=== PATIENT | female | born 1965 | race Caucasian/White ===

== ENCOUNTER 2018-06-25 19:18 | Emergency (ER) | payer MEDICARE, SELFPAY ==
[2018-06-25 19:23] VITALS: BP 132/67; PULSE 90; RESP 16; TEMP 36.7; O2SAT 97
--- NOTE | 2018-06-25 20:41 | NUR.NOTE ---
ring removed with trauma shearsNursing Note:
--- NOTE | 2018-06-25 21:52 | DI.RAD_ITS ---
SYMPTOMS/DIAGNOSIS: FALL ON OUT STRETCHED HAND RIGHT HAND: Multiple views. There is a comminuted oblique fracture through the shaft of the right fifth metacarpal. There is mild displacement of the fracture noted. There is soft tissue swelling about the hand. IMPRESSION: Fracture of the shaft of the right fifth metacarpal as described. RIGHT ELBOW: Three views. There is an osseous density adjacent to the lateral aspect of the head of the radius. This may represent a small avulsed fracture vs an unfused ossicle or old injury. No joint effusion is seen. No other fracture or dislocation is identified. IMPRESSION: 2 mm osseous density adjacent to the lateral aspect of the head of the right radius. This may represent an acute avulsed fracture vs an old injury or unfused ossicle. Please correlate with the patient's site of pain.
--- NOTE | 2018-06-25 22:03 | W.ED.GENAD ---
Discharge Plan Disposition Patient Disposition: HOME Condition: Fair Discharge Details Chief Complaint: Orthopedic Clinical Impression: Closed fracture of 5th metacarpal Primary Care Provider: Sheila Lara ED Provider: Makenzie King Home Meds and New Rx's Prescriptions: Continue fluoxetine 40 MG capsule 80 mg PO QAM RF: 0 trazodone 50 MG tablet 50 mg PO HS RF: 0 baclofen 20 MG tablet 20 mg PO TID RF: 0 gabapentin 800 MG tablet 800 mg PO DIRECTED RF: 0 carbidopa-levodopa 1 EACH tablet,disintegrating 1 ea PO TID RF: 0 quetiapine 400 MG tablet extended release 24 hr 400 mg PO HS RF: 0 dronabinol [Marinol] 2.5 MG capsule 2.5 mg PO BID RF: 0 tizanidine 2 MG capsule 1 - 2 tab PO QID PRNRF: 0 Cannabidiol 20 - 40 mg PO QID PRN PRNRF: 0 multivitamin 1 EACH capsule 1 ea PO DAILY RF: 0 Discharge Instructions Instructions: Boxer Fracture (ED) Additional Instructions: Encourage rest, ice, elevation. Tylenol and/or ibuprofen as needed for discomfort. May continue with previously prescribed pain medication. Keep splint on until evaluated by orthopedics. Please contact orthopedics tomorrow morning to schedule follow-up appointment. If you develop new or worsening symptoms please seek care urgently once again. Stand Alone Forms: Work Release Referrals: Logan Waters MD [ [facility] STAFF PHYSICIAN] - ([phone]) Discharge Data Discharge Date/Time-TO BE ENTERED AT DEPARTURE: 06/25/18 22:43 Medical Decision Making [facility] Narrative Medical decision making narrative: Patient presents today with chief complaint of right hand pain after FOOSH prior to arrival while hiking. On exam, she is noted to have ulnar-sided swelling and ecchymosis of the hand. She does not have pain extending into the digits but does report pain with movement of them. She has good extension of the wrist but flexion is slightly limited. She reports that flexion increases the discomfort she is experiencing on the ulnar side of her hand. No pain elicited with palpation about the wrist. Neurovascularly intact. Full range of motion of the elbow although the patient is endorsing some posterior elbow pain primarily over the olecranon with full extension. I am concerned primarily for a boxer fracture. Will obtain imaging of the patient's hand and elbow. Discussed the plan with the patient and her . She reports she used CBD oil prior to arrival and her pain is now under control. Is declining further analgesics at this time X-rays reviewed by radiologist. I was concerning for questionable 2.3 mm tiny chip avulsion fracture along the lateral head of the radius versus unfused accessory ossicle. Normal soft tissues. Right hand x-ray significant for minimally comminuted oblique fracture within the proximal mid shaft of the fifth soft tissues are normal Discussed these findings with the patient. Reevaluated and I am concerned that there is some internal rotation to the fifth digit, likely associated with fracture she will be placed in a boxer splint. Encourage rest, ice, elevation. Tylenol and/or ibuprofen as needed for discomfort. Patient is placed in a boxer splint using plaster. Sensation and capillary refill remain intact after application of the splint. Patient was then placed in a sling for her questionable elbow fracture. I did reevaluate the elbow. Patient had initially been endorsing some pain over the olecranon. However, with palpation over the radial head she is also endorsing some minimal discomfort. No ecchymosis or swelling noted. Patient will contact orthopedics tomorrow morning to schedule follow-up. She has been seen by Dr. Waters historically. We discussed new/worsening symptoms once he care urgently once again. All questions and concerns were addressed and she is in agreement with this plan [facility] - General Adult General Date/Time Provider Initiated Documentation: 06/25/18 19:27. History of Present Illness 53 year old F presents to the emergency department with the chief complaint of Right hand pain, described as moderate, Quality is described as burning and aching, and is localized to the right and upper extremity. Patient extremity (radiates proximally into the right wrist, particularly with movement). Patient started experiencing this hour(s) (1) and it has been constant. Immobilization improves symptom(s), Movement worsens symptoms . Patient notes no other symptoms. and other (Denies altered sesnation); denies fever/chills and rash. Patient did receive the following treatments prior to arrival, other (topical cannaboid) Related Data Home Medications Medication Instructions Recorded Confirmed baclofen 20 mg PO TID 06/09/17 06/27/18 carbidopa-levodopa 1 ea PO TID 06/09/17 06/27/18 fluoxetine 80 mg PO QAM 06/09/17 06/27/18 gabapentin 800 mg PO DIRECTED 06/09/17 06/27/18 quetiapine 400 mg PO HS 06/09/17 06/27/18 trazodone 50 mg PO HS 06/09/17 06/27/18 Cannabidiol 20 - 40 mg PO QID PRN PRN 07/29/17 06/27/18 multivitamin 1 ea PO DAILY 07/29/17 06/27/18 tizanidine 1 - 2 tab PO QID PRN 07/29/17 06/27/18 dronabinol [Marinol] 2.5 mg PO BID 08/29/17 06/27/18 Allergies Allergy/AdvReac Type Severity Reaction Status Date / Time morphine AdvReac very Unverified 06/27/18 11:08 loopy General Stated Complaint: Orthopedic JOEY: 4 Review of Systems Constitutional Reports as per HPI Musculoskeletal Reports as per HPI Integumentary/Breasts Reports as per HPI Neurologic Reports as per HPI [facility] Medical History Anemia Chronic pain Depression Dystonia Fatigue Incontinence Insomnia Low back pain Pain in left knee Raynauds syndrome Sarcoidosis TMJ (temporomandibular joint disorder) Vitamin D deficiency Social History Smoking/Tobacco Use Status: Never Surgical History Colonoscopy - MAC (08/29/17) Exam Const General: cooperative, healthy appearing, comfortable, no acute distress, well developed and well groomed Nutritional Appearance: average body habitus Orientation: alert and awake [facility] Head: atraumatic Eyes General: appearance normal, both eyes and all related structures Resp Effort & Inspection: normal respiratory effort, able to speak in complete sentences and no respiratory distress Cardio Rate: regular rate Rhythm: regular rhythm Skin General skin exam: ecchymosis (along the palmar ulnar side of the hand) Lesions: no lesions Rashes: no rashes Neuro General: alert and awake Cognition: normal cognition Speech: speech normal Gait: normal gait Sensory Exam: no sensory deficits noted Extrem General: abnormal to inspection (Exam of the right upper extremity is significant for swelling on the ulnar side of the hand. She has ecchymosis of the palm. Pain primarily of the fifth metacarpal. No opening the skin. Sensation normal in the digits. Good capillary refill.), abnormal ROM (Limited range of motion of the wrist. 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 She is unable to extend at baseline) and normal capillary refill Psych Appearance: grossly normal and well kempt Mental Status: mental status grossly normal Speech and Movement: speech and movement normal Mood: congruent mood Affect: normal affect Attitude: cooperative Course Vital Signs Temperature 36.7 C 06/25/18 19:23 Pulse 90 06/25/18 19:23 Respiratory Rate 16 06/25/18 19:23 Blood Pressure 132/67 06/25/18 19:23 Pulse Oximetry 97 06/25/18 19:23 Temperature 36.7 C 06/25/18 19:23 Pulse 90 06/25/18 19:23 Respiratory Rate 16 06/25/18 19:23 Blood Pressure 132/67 06/25/18 19:23 Pulse Oximetry 97 06/25/18 19:23
[2018-06-25 22:29] VITALS: BP 132/67; PULSE 90; RESP 16; TEMP 36.7; O2SAT 97
--- NOTE | 2018-06-25 22:29 | DI.VRAD_ITS ---
EXAM: XR Right Hand Complete, 3 or more Views EXAM DATE/TIME: 06/25/2018 8:40 PM CLINICAL HISTORY: 53 years old, female; Injury or trauma; Fall; Initial encounter; Blunt trauma (contusions or hematomas; Hand; Right; Injury details: Foosh TECHNIQUE: XR Right hand 3 or more views. COMPARISON: No relevant prior studies available. FINDINGS: Bones/joints: A minimally comminuted oblique fracture is seen within the proximal-mid shaft of the fifth metacarpal. Soft tissues: Normal. IMPRESSION: A minimally comminuted oblique fracture is seen within the proximal-mid shaft of the fifth metacarpal. Dictated and Authenticated by: Brett Fischer MD. Ordering:KVNG BLANCHARD MD
--- NOTE | 2018-06-25 22:31 | DI.VRAD_ITS ---
EXAM: XR Right Elbow Complete, 3 or more Views EXAM DATE/TIME: 06/25/2018 8:40 PM CLINICAL HISTORY: 53 years old, female; Injury or trauma; Fall; Initial encounter; Blunt trauma (contusions or hematomas; Elbow; Right; Injury details: Foosh TECHNIQUE: XR Right elbow 3 or more views. COMPARISON: No relevant prior studies available. FINDINGS: Bones/joints: There is a questionable 2.3 mm tiny chip avulsion fracture along the lateral head of the radius versus unfused accessory ossicle. Soft tissues: Normal. IMPRESSION: Questionable 2.3 mm chip avulsion fracture fragment along the lateral radial head versus unfused accessory ossicle. Dictated and Authenticated by: Brett Fischer MD. Ordering:KVNG BLANCHARD MD
--- NOTE | 2018-06-25 22:42 | ED.GENADUL_ITS ---
Discharge Plan Disposition Patient Disposition: HOME Condition: Fair Discharge Details Chief Complaint: Orthopedic Clinical Impression: Closed fracture of 5th metacarpal Primary Care Provider: Sheila Lara ED Provider: Makenzie King Home Meds and New Rx's Prescriptions: Continue fluoxetine 40 MG capsule 80 mg PO QAM RF: 0 trazodone 50 MG tablet 50 mg PO HS RF: 0 baclofen 20 MG tablet 20 mg PO TID RF: 0 gabapentin 800 MG tablet 800 mg PO DIRECTED RF: 0 carbidopa-levodopa 1 EACH tablet,disintegrating 1 ea PO TID RF: 0 quetiapine 400 MG tablet extended release 24 hr 400 mg PO HS RF: 0 dronabinol [Marinol] 2.5 MG capsule 2.5 mg PO BID RF: 0 tizanidine 2 MG capsule 1 - 2 tab PO QID PRNRF: 0 Cannabidiol 20 - 40 mg PO QID PRN PRNRF: 0 multivitamin 1 EACH capsule 1 ea PO DAILY RF: 0 Discharge Instructions Instructions: Boxer Fracture (ED) Additional Instructions: Encourage rest, ice, elevation. Tylenol and/or ibuprofen as needed for discomfort. May continue with previously prescribed pain medication. Keep splint on until evaluated by orthopedics. Please contact orthopedics tomorrow morning to schedule follow-up appointment. If you develop new or worsening symptoms please seek care urgently once again. Stand Alone Forms: Work Release Referrals: Logan Waters MD [ [facility] STAFF PHYSICIAN] - ([phone]) Discharge Data Discharge Date/Time-TO BE ENTERED AT DEPARTURE: 06/25/18 22:43 Medical Decision Making [facility] Narrative Medical decision making narrative: Patient presents today with chief complaint of right hand pain after FOOSH prior to arrival while hiking. On exam, she is noted to have ulnar-sided swelling and ecchymosis of the hand. She does not have pain extending into the digits but does report pain with movement of them. She has good extension of the wrist but flexion is slightly limited. She reports that flexion increases the discomfort she is experiencing on the ulnar side of her hand. No pain elicited with palpation about the wrist. Neurovascularly intact. Full range of motion of the elbow although the patient is endorsing some posterior elbow pain primarily over the olecranon with full extension. I am concerned primarily for a boxer fracture. Will obtain imaging of the patient's hand and elbow. Discussed the plan with the patient and her . She reports she used CBD oil prior to arrival and her pain is now under control. Is declining further analgesics at this time X-rays reviewed by radiologist. I was concerning for questionable 2.3 mm tiny chip avulsion fracture along the lateral head of the radius versus unfused accessory ossicle. Normal soft tissues. Right hand x-ray significant for minimally comminuted oblique fracture within the proximal mid shaft of the fifth soft tissues are normal Discussed these findings with the patient. Reevaluated and I am concerned that there is some internal rotation to the fifth digit, likely associated with fracture she will be placed in a boxer splint. Encourage rest, ice, elevation. Tylenol and/or ibuprofen as needed for discomfort. Patient is placed in a boxer splint using plaster. Sensation and capillary refill remain intact after application of the splint. Patient was then placed in a sling for her questionable elbow fracture. I did reevaluate the elbow. Patient had initially been endorsing some pain over the olecranon. However, with palpation over the radial head she is also endorsing some minimal discomfort. No ecchymosis or swelling noted. Patient will contact orthopedics tomorrow morning to schedule follow-up. She has been seen by Dr. Waters historically. We discussed new/worsening symptoms once he care urgently once again. All questions and concerns were addressed and she is in agreement with this plan [facility] - General Adult General Date/Time Provider Initiated Documentation: 06/25/18 19:27 . History of Present Illness 53 year old F presents to the emergency department with the chief complaint of Right hand pain, described as moderate, Quality is described as burning and aching, and is localized to the right and upper extremity. Patient extremity (radiates proximally into the right wrist, particularly with movement) . Patient started experiencing this hour(s) (1) and it has been constant. Immobilization improves symptom(s), Movement worsens symptoms . Patient notes no other symptoms. and other (Denies altered sesnation); denies fever/ chills and rash. Patient did receive the following treatments prior to arrival, other (topical cannaboid) Related Data Home Medications Medication Instructions Recorded Confirmed baclofen 20 mg PO TID 06/09/17 06/27/18 carbidopa-levodopa 1 ea PO TID 06/09/17 06/27/18 fluoxetine 80 mg PO QAM 06/09/17 06/27/18 gabapentin 800 mg PO DIRECTED 06/09/17 06/27/18 quetiapine 400 mg PO HS 06/09/17 06/27/18 trazodone 50 mg PO HS 06/09/17 06/27/18 Cannabidiol 20 - 40 mg PO QID PRN PRN 07/29/17 06/27/18 multivitamin 1 ea PO DAILY 07/29/17 06/27/18 tizanidine 1 - 2 tab PO QID PRN 07/29/17 06/27/18 dronabinol [Marinol] 2.5 mg PO BID 08/29/17 06/27/18 Allergies Allergy/AdvReac Type Severity Reaction Status Date / Time morphine AdvReac very Unverified 06/27/18 11:08 loopy General Stated Complaint: Orthopedic JOEY: 4 Review of Systems Constitutional Reports as per HPI Musculoskeletal Reports as per HPI Integumentary/Breasts Reports as per HPI Neurologic Reports as per HPI [facility] Medical History Anemia Chronic pain Depression Dystonia Fatigue Incontinence Insomnia Low back pain Pain in left knee Raynauds syndrome Sarcoidosis TMJ (temporomandibular joint disorder) Vitamin D deficiency Social History Smoking/Tobacco Use Status: Never Surgical History Colonoscopy - MAC (08/29/17) Exam Const General: cooperative, healthy appearing, comfortable, no acute distress, well developed and well groomed Nutritional Appearance: average body habitus Orientation: alert and awake [facility] Head: atraumatic Eyes General: appearance normal, both eyes and all related structures Resp Effort & Inspection: normal respiratory effort, able to speak in complete sentences and no respiratory distress Cardio Rate: regular rate Rhythm: regular rhythm Skin General skin exam: ecchymosis (along the palmar ulnar side of the hand) Lesions: no lesions Rashes: no rashes Neuro General: alert and awake Cognition: normal cognition Speech: speech normal Gait: normal gait Sensory Exam: no sensory deficits noted Extrem General: abnormal to inspection (Exam of the right upper extremity is significant for swelling on the ulnar side of the hand. She has ecchymosis of the palm. Pain primarily of the fifth metacarpal. No opening the skin. Sensation normal in the digits. Good capillary refill.), abnormal ROM (Limited range of motion of the wrist. 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 She is unable to extend at baseline) and normal capillary refill Psych Appearance: grossly normal and well kempt Mental Status: mental status grossly normal Speech and Movement: speech and movement normal Mood: congruent mood Affect: normal affect Attitude: cooperative Course Vital Signs Temperature 36.7 C 06/25/18 19:23 Pulse 90 06/25/18 19:23 Respiratory Rate 16 06/25/18 19:23 Blood Pressure 132/67 06/25/18 19:23 Pulse Oximetry 97 06/25/18 19:23 Temperature 36.7 C 06/25/18 19:23 Pulse 90 06/25/18 19:23 Respiratory Rate 16 06/25/18 19:23 Blood Pressure 132/67 06/25/18 19:23 Pulse Oximetry 97 06/25/18 19:23
== END 2018-06-25 22:43 | disposition home or self-care (01) ==
PROVIDERS: Emergency Provider Physician Assistant; PCP Physician Assistant Medical
DX: S62.306A Unspecified fracture of fifth metacarpal bone, right hand, initial encounter for closed fracture (principal); W01.0XXA Fall on same level from slipping, tripping and stumbling without subsequent striking against object, initial encounter; Y93.01 Activity, walking, marching and hiking
CPT/HCPCS: 29125; 99284; 73080; 73130

== ENCOUNTER → 2018-06-27 11:02 | Outpatient (BNVA) | payer MEDICARE, SELFPAY | PROVIDERS: PCP Physician Assistant Medical; Referring Provider Physician Assistant Medical; Visit Provider Orthopaedic Surgery | DX: S62.306A Unspecified fracture of fifth metacarpal bone, right hand, initial encounter for closed fracture (principal); W01.0XXA Fall on same level from slipping, tripping and stumbling without subsequent striking against object, initial encounter | CPT/HCPCS: 99214; L3908 ==

== ENCOUNTER 2018-07-18 10:23 | Outpatient (CLI) | payer MEDICARE, SELFPAY ==
--- NOTE | 2018-07-18 10:23 | DI.RAD_ITS ---
SYMPTOM/DIAGNOSIS: F/U FX RIGHT HAND: Three views. Comparison is made with 06/25/18. There is again seen a mildly displaced, comminuted fracture of the right fifth metacarpal. No change in alignment of the fracture is seen. No new fractures or dislocations are present. The soft tissue swelling has decreased since the prior examination. IMPRESSION: Stable right fifth metacarpal fracture.
== END 2018-07-18 10:43 ==
PROVIDERS: PCP Physician Assistant Medical; Referring Provider Physician Assistant Medical; Visit Provider Orthopaedic Surgery
DX: S62.326D Displaced fracture of shaft of fifth metacarpal bone, right hand, subsequent encounter for fracture with routine healing (principal); X58.XXXD Exposure to other specified factors, subsequent encounter
CPT/HCPCS: 99211; 99213; 73130

== ENCOUNTER 2018-07-27 01:10 | Outpatient (CLI) | payer MEDICARE, SELFPAY ==
--- NOTE | 2018-07-27 10:30 | DI.MRI_ITS ---
SYMPTOM/DIAGNOSIS: RUE DYSTONIA, G24.9 BRAIN MRI: Sagittal T 2, axial T 1, T 2 and T 2 hemo and axial diffusion and T 2 axial FLAIR blader pulse sequences were performed. No signal abnormality is demonstrated in the brain and there is no evidence of a hemorrhage or mass or restricted diffusion. The ventricles are unremarkable. The normal flow void is demonstrated in the cerebral vessels. SUMMARY: Negative brain MRI.
== END 2018-07-27 01:30 ==
PROVIDERS: PCP Physician Assistant Medical; Visit Provider Neurological Surgery
DX: G24.8 Other dystonia (principal)
CPT/HCPCS: 70551

== ENCOUNTER 2018-11-23 00:30 | Outpatient (CLI) | payer MEDICARE, SELFPAY ==
--- NOTE | 2018-11-23 12:30 | DI.MAMMO_ITS ---
SYMPTOMS/DIAGNOSIS: SCREENING, Z12.31 MAMMOGRAMS: Mammograms were interpreted according to the usual protocol including computer analysis with CAD system, tomosynthesis and C view imaging. The breast tissue is of moderate radiodensity. There is no evidence of a discrete mass. There are no suspicious calcifications and there has been no significant interval change when compared with prior images of 04/21/2017. SUMMARY: No evidence of malignancy, category 1. Yearly screening mammography is recommended.. Breast density category B. SA ASSESSMENT OF FINDINGS: Negative. Category 1. Patient will receive a letter notifying them of these results. BI-RADS category B. There are scattered areas of fibroglandular density.
== END 2018-11-23 00:50 ==
PROVIDERS: PCP Physician Assistant Medical; Visit Provider Physician Assistant Medical
DX: Z12.31 Encounter for screening mammogram for malignant neoplasm of breast (principal)
CPT/HCPCS: 77063; 77067

== ENCOUNTER 2019-06-01 17:55 | Emergency (ER) | payer MEDICARE, OTHER, SELFPAY ==
[2019-06-01] VITALS (13 sets, daily range): BP systolic 122–136; BP diastolic 53–92; PULSE 60–71; RESP 9–23; TEMP 36.4; O2SAT 94–98
--- NOTE | 2019-06-01 18:13 | W.ED.GENAD ---
Discharge Plan Disposition Patient Disposition: HOME Condition: Improving Discharge Details Chief Complaint: Nausea/Vomit/Diar Clinical Impression: Episodic peripheral vertigo Primary Care Provider: Sheila Lara ED Provider: Logan Hunter Home Meds and New Rx's Prescriptions: New meclizine 25 mg tablet 25 mg PO BID PRN (Reason: dizziness) Qty: 10 RF: 0 Continued fluoxetine 40 MG capsule 80 mg PO QAM RF: 0 trazodone 50 MG tablet 50 mg PO HS RF: 0 baclofen 20 MG tablet 20 mg PO TID RF: 0 gabapentin 800 MG tablet 800 mg PO DIRECTED RF: 0 carbidopa-levodopa 1 EACH tablet,disintegrating 1 ea PO TID RF: 0 quetiapine 400 MG tablet extended release 24 hr 400 mg PO HS RF: 0 dronabinol [Marinol] 2.5 MG capsule 2.5 mg PO BID RF: 0 tizanidine 2 MG capsule 1 - 2 tab PO QID PRNRF: 0 Cannabidiol 20 - 40 mg PO QID PRN PRNRF: 0 multivitamin 1 EACH capsule 1 ea PO DAILY RF: 0 Discharge Instructions Instructions: Vertigo (ED) Additional Instructions: Home to rest tonight. Sleep with head of the bed elevated 2-3 pillows. Continue to liberally hydrate. May use the prescribed meclizine, if needed for persistent vertiginous symptoms. Return if you develop a headache, fever, or any other acute concerns. Medical Decision Making 54-year-old female with a history of dystonia, previous episode of peripheral vertigo in 2017. Presents the ER complaining of intermittent vertiginous symptoms that began this morning. She does not have a headache. No recent trauma. She denies any recent illness. On exam her right tympanic membrane is slightly distended but otherwise unremarkable. Cranial nerves are intact. Differential diagnosis includes peripheral vertigo/labyrinthitis, dehydration, electrolyte abnormality. Patient had IV access established, given a fluid bolus, screening laboratories obtained, she is referred for CT scan of the head. Given meclizine by mouth. Labs note a white count of 6, hematocrit 38, platelets 201. Sodium 142, potassium 4.0, chloride 104, bicarb 30, BUN 14, creatinine 0.8. LFTs unremarkable. Magnesium slightly low at 1.7 & supplemented in the ED. Patient's CT without acute intracranial findings. Following IVF, medications, the patient has near complete resolution of her presenting symptoms. She is improved and better. We will prescribe a small number of meclizine to be used as needed for home. She is stable for discharge at this time. Lab Data Lab results reviewed: Yes I reviewed the patient's lab results. Laboratory Results - last 24 hr 06/01/19 06/01/19 18:28 18:28 WBC 6.29 RBC 4.19 Hgb 12.4 Hct 38.3 MCV 91.4 MCH 29.6 MCHC 32.4 RDW 13.8 Plt Count 201 MPV 11.2 H Immature Gran % 0.2 Neutrophils % 65.3 Lymphocytes % 24.5 Monocytes % 7.2 Eosinophils % 2.5 Basophils % 0.3 Absolute Neutrophils 4.11 Absolute Lymphocytes 1.54 Absolute Monocytes 0.45 Absolute Eosinophils 0.16 Absolute Basophils 0.02 Sodium 142 Potassium 4.0 Chloride 104 Carbon Dioxide 30.6 Anion Gap 7.4 BUN 14 Creatinine 0.80 Estimated GFR/1.73 m2 >= 60.00 Glucose 110 H Calcium 8.9 Magnesium 1.7 L Total Bilirubin 0.3 AST 15 ALT 16 Alkaline Phosphatase 37 L Total Protein 7.5 Albumin 3.9 HPI General Mode of arrival: ambulatory. Date/Time Provider Initiated Documentation: 06/01/19 17:55. Limitations to Documentation: no limitations. Information obtained by: patient. History of Present Illness 54 year old F presents to the emergency department with the chief complaint of Dizziness since this morning, described as moderate, and is localized to the head. Patient reports no radiation. Patient started experiencing this hour(s) and it has been intermittent. No relieving factors improve symptom(s), No exacerbating factors reported . Patient notes other (No fall or trauma. Nauseated without emesis.); denies fever/chills and headaches. Patient did receive the following treatments prior to arrival, none Related Data Home Medications Medication Instructions Recorded Confirmed baclofen 20 mg PO TID 06/09/17 06/01/19 carbidopa-levodopa 1 ea PO TID 06/09/17 06/01/19 fluoxetine 80 mg PO QAM 06/09/17 06/01/19 gabapentin 800 mg PO DIRECTED 06/09/17 07/18/18 quetiapine 400 mg PO HS 06/09/17 06/01/19 trazodone 50 mg PO HS 06/09/17 06/01/19 Cannabidiol 20 - 40 mg PO QID PRN PRN 07/29/17 06/01/19 multivitamin 1 ea PO DAILY 07/29/17 06/01/19 tizanidine 1 - 2 tab PO QID PRN 07/29/17 06/01/19 dronabinol [Marinol] 2.5 mg PO BID 08/29/17 06/01/19 meclizine 25 mg PO BID PRN #10 tab 06/01/19 Previous Rx's Medication Instructions Recorded meclizine 25 mg PO BID PRN #10 tab 06/01/19 Allergies Allergy/AdvReac Type Severity Reaction Status Date / Time morphine AdvReac very Unverified 06/01/19 18:01 loopy General Stated Complaint: Nausea/Vomit/Diar JOEY: 3 Review of Systems Review of Systems No fall, trauma, headache, fever. 6 systems reviewed and otherwise negative [facility] Medical History Anemia Chronic pain Depression Dystonia Fatigue Incontinence Insomnia Light-headedness (Chronic) Low back pain Lymphadenopathy (Chronic) Pain in left knee Raynauds syndrome Sarcoidosis TMJ (temporomandibular joint disorder) Vitamin D deficiency Surgical History Colonoscopy - MAC (08/29/17) Social History Smoking/Tobacco Use Status: Never Drug use: Never Do you feel safe in your relationship?: Yes Exam Narrative Exam Narrative: GEN: awake, alert, oriented 3. Pleasant, well groomed, interactive. HEAD: Normocephalic, atraumatic ENT: Mucous membranes moist, oropharynx unremarkable, External ear exam unremarkable. Right tympanic membrane slightly distended and fluid-filled. EYES: PERRL, EOMI NECK: Full ROM, no MONALISA, no menigismus CHEST/RESP: Nontender, clear to auscultation bilateral, no wheeze/rhonchi/rales CARDIOVASCULAR: RRR, no murmur, rub clyde. 2+ Rad pulse bilateral ABDOMEN: Soft, nontender, no mass. +Bowel sounds EXT: Full ROM, no edema, no rash Neuro: Grossly normal neurologic exam, the right upper extremity is held in flexion and supination. She has increased muscle tone right upper extremity. Cranial nerves II through XII grossly intact. Conversant, interactive. Psych: Speech fluent, thoughts congruent, affect normal Course Vital Signs Temperature 36.4 C L 06/01/19 17:58 Pulse 65 06/01/19 17:58 Respiratory Rate 18 06/01/19 17:58 Blood Pressure 122/91 H 06/01/19 17:58 Pulse Oximetry 98 06/01/19 17:58 Temperature 36.4 C L 06/01/19 17:58 Temperature Source Tympanic 06/01/19 17:58 Pulse 65 06/01/19 17:58 Respiratory Rate 18 06/01/19 17:58 Blood Pressure 122/91 H 06/01/19 17:58 Pulse Oximetry 98 06/01/19 17:58 Oxygen Delivery Method Room Air 06/01/19 17:58 Oxygen Flow Rate 0 06/01/19 17:58 Pain Level 0 06/01/19 17:58
[2019-06-01] MEDS: Meclizine 25 MG TAB PO (18:21)
[2019-06-01] MEDS: Normal Saline 1,000 ML 1000 ML IV (18:30)
[2019-06-01 18:34] LABS: Abs Immature Grans 0.01 k/cumm (0.0-0.09); Absolute Basophil Count 0.02 k/cumm (0.0-0.2); Absolute Eosinophil Count 0.16 k/cumm (0.0-0.7); Absolute Lymphocyte Count 1.54 k/cumm (1.2-3.4); Absolute Monocyte Count 0.45 k/cumm (0.11-0.7); Absolute Neutrophil Count 4.11 k/cumm (1.2-6.7); Basophils % 0.3; Eosinophils % 2.5; HCT 38.3 % (36.0-46.0); HGB 12.4 g/dL (12.0-15.5); Immature Grans % 0.2; Lymphocytes % 24.5; Mean Corp. HGB Concentration 32.4 g/dL (32.0-36.0); Mean Corpuscular Hemoglobin 29.6 pg (27.0-33.0); Mean Corpuscular Volume 91.4 fL (80-95); Mean Platelet Volume 11.2 fL (8.0-11.0); Monocytes % 7.2; Neutrophils % 65.3; Platelet Count 201 x1000/uL (130-400); RBC 4.19 m/cumm (4.00-5.20); RBC Distribution Width 13.8 % (11.7-14.6); White Blood Cell Count 6.29 k/cumm (4.4-10.8)
--- NOTE | 2019-06-01 18:38 | NUR.NOTE ---
iv placed ivf infusing pt medicated as per mdo Nursing Note:
[2019-06-01 18:46] LABS: ALT 16 U/L (14-59); AST 15 U/L (15-37); Albumin 3.9 g/dL (3.4-5.0); Alkaline Phosphatase 37 U/L (46-116); Anion Gap 7.4 mmol/L (3-11); BUN 14 mg/dL (7-18); Bilirubin, Total 0.3 mg/dL (0.2-1.0); CO2 30.6 mmol/L (21.0-32.0); Calcium 8.9 mg/dL (8.5-10.1); Chloride 104 mmol/L (98-107); Glucose 110 mg/dL (70-100); Magnesium 1.7 mg/dL (1.8-2.4); Sodium 142 mmol/L (136-145); Total Protein 7.5 g/dL (6.4-8.2)
[2019-06-01] MEDS: MAGNESIUM SULFATE 1 GM/100 ML BAG IVPB (18:53)
--- NOTE | 2019-06-01 19:23 | DI.CT_ITS ---
SYMPTOM/DIAGNOSIS: DIZZINESS, NAUSEA NONCONTRAST HEAD CT: Comparison is made with 28 Sep 2017. No intracranial hemorrhage, mass or infarct is seen. The ventricles are normal in size. There is no atrophy. The sinuses and mastoid air cells appear clear where visualized. IMPRESSION: Negative head CT.
--- NOTE | 2019-06-01 19:56 | DI.VRAD_ITS ---
EXAM: CT Head Without Contrast EXAM DATE/TIME: 06/01/2019 7:21 PM CLINICAL HISTORY: 54 years old, female; Dizziness TECHNIQUE: Imaging protocol: Computed tomography images of the head without contrast. Radiation optimization: All CT scans at this facility use at least one of these dose optimization techniques: automated exposure control; mA and/or kV adjustment per patient size (includes targeted exams where dose is matched to clinical indication); or iterative reconstruction. COMPARISON: CT HEAD WITHOUT CONTRAST 28/09/2017 10:23 FINDINGS: Brain: Unremarkable. No intracranial hemorrhage. Unremarkable white matter. No mass effect. Ventricles: Unremarkable. No ventriculomegaly. Bones/joints: Unremarkable. No acute fracture. Sinuses: Visualized sinuses are unremarkable. No fluid levels. Mastoid air cells: Visualized mastoid air cells are well aerated. No mastoid effusion. Soft tissues: Unremarkable. IMPRESSION: No acute intracranial abnormality. Dictated and Authenticated by: Amberly Dorman MD. Ordering:LOLI Ford MD
== END 2019-06-01 20:50 | disposition home or self-care (01) ==
PROVIDERS: Emergency Provider Emergency Medicine; PCP Physician Assistant Medical
DX: H81.399 Other peripheral vertigo, unspecified ear (principal); R11.2 Nausea with vomiting, unspecified; E83.42 Hypomagnesemia
CPT/HCPCS: 36415; 80053; 96361; 96365; 99284; 70450; 83735; 85025; J3475

== ENCOUNTER 2019-12-16 10:48 | Emergency (ER) | payer MEDICARE, OTHER, SELFPAY ==
[2019-12-16 10:55] VITALS: BP 147/82; PULSE 114; RESP 16; TEMP 36.5; O2SAT 95
--- NOTE | 2019-12-16 11:30 | DI.RAD_ITS ---
EXAM: XR CHEST 2V PA LATERAL CLINICAL HISTORY: cough, fever c/o RLL pneumonia clinically TECHNIQUE: 2D digital imaging was performed. COMPARISON: CHEST 2 VIEWS PA,LAT from 09/28/2017 FINDINGS: MEDIASTINUM: Normal. HEART: Normal. PULMONARY VASCULATURE: Normal. LUNGS: There are infiltrates seen in the superior segment of the right lower lobe and the right middl e lobe. PLEURAL SPACE: No pleural effusion or pneumothorax. There is unchanged elevation of the right hemidia phragm. BONE:Mild degenerative changes are seen in the spine. OTHER FINDINGS:Surgical clips are seen overlying the lower thoracic spine which are unchanged. There is a battery pack seen overlying the left chest wall. IMPRESSION: Infiltrates in the right lower lobe and right middle lobe most suggestive of pneumonia. A follow-up examination is recommended to document complete resolution of the infiltrates. DATA REPOSITORY: RADIATION DOSE DELIVERED:
--- NOTE | 2019-12-16 11:34 | ED.GENADUL_ITS ---
Discharge Plan Disposition Patient Disposition: HOME Condition: Stable Discharge Details Chief Complaint: Sorethroat Clinical Impression: Pneumonia, Otitis media, Strep throat Primary Care Provider: Sheila Lara ED Provider: Ca Gonzalez Home Meds and New Rx's Prescriptions: New doxycycline hyclate 100 mg capsule 100 mg PO BID Qty: 20 RF: 0 amoxicillin-pot clavulanate [Augmentin] 875-125 mg tablet 1 tab PO BID Qty: 20 RF: 0 albuterol sulfate [Proventil HFA] 90 mcg/actuation HFA aerosol inhaler 2 puff IH Q6H PRN (Reason: shortness of breath or wheezing) Qty: 8.5 RF: 0 benzonatate [Tessalon Perles] 100 mg capsule 100 mg PO TID PRN (Reason: cough) Qty: 10 RF: 0 ofloxacin 0.3 % drops 10 drp OT DAILY 7 Days RF: 0 No Action fluoxetine 40 MG capsule 80 mg PO QAM RF: 0 trazodone 50 MG tablet 50 mg PO HS RF: 0 baclofen 20 MG tablet 20 mg PO TID RF: 0 gabapentin 800 MG tablet 800 mg PO DIRECTED RF: 0 carbidopa-levodopa 1 EACH tablet,disintegrating 1 ea PO TID RF: 0 quetiapine 400 MG tablet extended release 24 hr 400 mg PO HS RF: 0 dronabinol [Marinol] 2.5 MG capsule 2.5 mg PO BID RF: 0 meclizine 25 mg tablet 25 mg PO BID PRN (Reason: dizziness) Qty: 10 RF: 0 tizanidine 2 MG capsule 1 - 2 tab PO QID PRNRF: 0 Cannabidiol 20 - 40 mg PO QID PRN PRNRF: 0 multivitamin 1 EACH capsule 1 ea PO DAILY RF: 0 naproxen 500 mg Tablet 500 mg PO BID RF: 0 Discharge Instructions Instructions: Otitis Media (ED), Pneumonia (ED) Additional Instructions: Drink plenty of fluids. Rest activities as tolerated. Consider humidifier by her bedside. Avoid smoking. Use antibiotics as prescribed. Use inhaler with spacer as directed. Use eardrops as prescribed bilaterally. Use cough medication as prescribed if needed. Recheck promptly with primary care doctor this week. Return immediately for any worsening, concerns or alarming symptoms sooner if needed. You declined admission to the hospital today, you are aware of the risks associated with declining admission to the hospital with extensive pneumonia. Return immediately if needed for any worsening symptoms. Stand Alone Forms: Work Release Discharge Data Discharge Date/Time-TO BE ENTERED AT DEPARTURE: 12/16/19 15:03 Medical Decision Making This is a 54-year-old patient presenting to the emergency room for complaints of ill feeling for approximately 1 week specifically patient's complaining of nasal congestion, sore throat and ear pain. Patient reports cough with mild shortness of breath. No significant increase in respiratory effort. Patient does report intermittent low-grade fevers subjectively. Patient does report vomiting x2 over the course of the week, last vomiting last night. Patient has had diarrhea for the last 24 hours. Patient reports abdominal cramping but no associated abdominal pain at this time. After initial nursing evaluation rapid strep was performed which was positive. Patient does have obvious pharyngeal erythema patient does have bilateral otitis media as well with concern for possible microperforations of the eardrums. Due to blood in the ear canals and obvious effusion and bulging of the eardrum. No large TM defects noted. Patient also has notable rhonchi in the right lower lung concern for possible pneumonia. After discussing concern of possible pneumonia in addition to positive strep and bilateral otitis media patient's preference is to have chest x-ray at this time. Patient's vital signs reviewed. Patient is notably tachycardic at 114. Patient is able to eat and drink. Will offer p.o. fluids and Tylenol and recheck vital signs. Again patient is in no apparent distress at this time. No significant hypoxia noted or increase in respiratory effort. Patient has no concern of recent Covid exposures or travel. Patient's chest x-ray reveals a extensive right-sided pneumonia. I discussed t his result with the patient and recommended admission to the hospital. Recommended additional evaluate UA vale including labs. Patient declines any additional evaluation and declines admission to the hospital at this time. I have made patient aware that given the extent of her pneumonia she sustained significant risk of decompensation as an outpatient development of respiratory difficulty and possibility of if she is discharged home. Patient reports her understanding and continues to prefer discharge home at this time. I strongly recommended against this plan. Patient is alert and oriented x3, is competent to make decisions at this time and continues to request discharge. Patient reports she lives locally and is capable of returning to the emergency room if she is not improving. Alarming signs and symptoms for which patient should have immediate return were discussed. Given patient's plan to be discharged home will prescribe both Augmentin as well as doxycycline, inhalers and cough medication. Spacer provided. Ofloxacin drops prescribed for concern of microperforations of eardrums. Patient reports her understanding. Patient will be discharged home with assumed risk of decompensation and expectation that she will return for any worsening. Given her strong preference for discharge I have recommended very prompt follow-up with her primary care doctor. HPI General Date/Time Provider Initiated Documentation: 12/16/19 11:31 . HPI Narrative: This is a 54-year-old patient presenting to the emergency room today for complaints of sore throat. Patient reports sore throat for approximately 1 week. She does report associated nasal congestion and ear pain. Patient has had an intermittently productive cough. Patient reports intermittent subjective fevers. She did report vomiting at initial onset of illness and again last night. She has had onset of diarrhea in the last 24 hours. Patient denies abdominal pain currently she did report intermittent cramping prior to diarrhea. Patient does report mild shortness of breath however has no obvious increase in respiratory effort. Patient does report she has been drinking without difficulty. Patient denies any significant voice change or trismus. Denies back pain. 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 Patient smells strongly of marijuana. Related Data Home Medications Medication Instructions Recorded Confirmed baclofen 20 mg PO TID 06/09/17 12/17/19 carbidopa-levodopa 1 ea PO TID 06/09/17 12/17/19 fluoxetine 80 mg PO QAM 06/09/17 12/17/19 gabapentin 800 mg PO DIRECTED 06/09/17 12/17/19 quetiapine 400 mg PO HS 06/09/17 12/17/19 trazodone 50 mg PO HS 06/09/17 12/17/19 Cannabidiol 20 - 40 mg PO QID PRN PRN 07/29/17 12/17/19 multivitamin 1 ea PO DAILY 07/29/17 12/17/19 tizanidine 1 - 2 tab PO QID PRN 07/29/17 12/17/19 dronabinol [Marinol] 2.5 mg PO BID 08/29/17 12/17/19 meclizine 25 mg PO BID PRN #10 tab 06/01/19 12/17/19 albuterol sulfate [Proventil HFA] 2 puff IH Q6H PRN #8.5 gm 12/16/19 12/17/19 amoxicillin-pot clavulanate 1 tab PO BID #20 tab 12/16/19 [Augmentin] benzonatate [Tessalon Perles] 100 mg PO TID PRN #10 cap 12/16/19 12/17/19 doxycycline hyclate 100 mg PO BID #20 cap 12/16/19 naproxen 500 mg PO BID 12/16/19 12/17/19 ofloxacin 10 drp OT DAILY 7 Days ml 12/16/19 12/17/19 Previous Rx's Medication Instructions Recorded meclizine 25 mg PO BID PRN #10 tab 06/01/19 albuterol sulfate [Proventil HFA] 2 puff IH Q6H PRN #8.5 gm 12/16/19 amoxicillin-pot clavulanate 1 tab PO BID #20 tab 12/16/19 [Augmentin] benzonatate [Tessalon Perles] 100 mg PO TID PRN #10 cap 12/16/19 doxycycline hyclate 100 mg PO BID #20 cap 12/16/19 ofloxacin 10 drp OT DAILY 7 Days ml 12/16/19 Allergies Allergy/AdvReac Type Severity Reaction Status Date / Time morphine AdvReac very Unverified 12/16/19 10:59 loopy General Stated Complaint: Sorethroat JOEY: 3 Review of Systems All systems reviewed & are unremarkable except as noted in HPI and below Constitutional Constitutional: Denies chills, Reports fatigue, Reports fever(s) (Subjective), Reports headache(s) and Reports malaise ENT Ears, Nose, Mouth, and Throat: Reports otalgia, Reports headache(s), Reports nasal congestion, Denies sinus pain, Denies sinus pressure and Reports sore throat Cardiovascular Cardiovascular: Denies chest pain, Denies dyspnea and Denies dyspnea on exertion Respiratory Respiratory: Reports cough, Denies hemoptysis, Denies pain on inspiration, Denies dyspnea, Denies dyspnea on exertion and Denies wheezing Gastrointestinal Gastrointestinal: Denies abdominal pain, Reports cramping, Reports diarrhea, Reports nausea and Reports vomiting Genitourinary Genitourinary: Denies dysuria Neurologic Neurologic: Reports headache(s) Endocrine Endocrine: Reports fatigue Allergic/Immunologic Allergic/Immunologic: Denies wheezing [facility] Medical History (Updated 12/18/19 @ 14:33 by Cesar Craft) Anemia Chronic pain Depression Dystonia (Chronic) Fatigue Incontinence Insomnia Light-headedness (Chronic) Low back pain Lymphadenopathy (Chronic) Pain in left knee Raynauds syndrome Sarcoidosis TMJ (temporomandibular joint disorder) Vitamin D deficiency Surgical History (Updated 12/17/19 @ 12:25 by Moshe Figueroa MD) Colonoscopy - MAC (08/29/17) 08/29/17 Dr Bonner - incomplete prep, rec'd repeat with 2 day prep. mg S/P deep brain stimulator placement (Acute) Social History Smoking/Tobacco Use Status: Never Alcohol Intake: never Drug use: Never Substance use type: does not use Do you feel safe at home: Yes Do you feel safe in your relationship?: Yes Exam Narrative Exam Narrative: CONST: Healthy appearing patient, in no acute distress. Well hydrated. Alert and oriented. HENMT: Head nomocephalic, normal to inspection. Atraumatic. Hearing grossly normal. TMs appear infected bilaterally with effusion as well as bulging, blood noted in the ear canals bilaterally consistent with possible microperforations of the eardrums. External canal irritation present, specifically erythema EYES: General normal appearance. Alignment normal. Eyelids normal. Conjunctiva normal. NECK: Normal visual inspection. FROM. Trachea midline. No Midline tenderness. Cervical lymphadenopathy present bilaterally CHEST: Normal insepection of the chest. RESP: Normal respiratory effort. Speaking full sentences. No cough. No audible wheezing. No retractions. Rhonchi noted in the right lower lung, no wheezing. Breath sounds equal bilaterally CARDIO: No JVD. No murmur, regular rate and rhythm SKIN: Normal. Dry. No rashes. NEURO: Alert and awake. Speech clear. PSYCH: Normal affect. Cooperative. Course Vital Signs Vital signs: Vital Signs Temperature 36.5 C 12/16/19 10:55 Pulse 114 H 12/16/19 10:55 Respiratory Rate 16 12/16/19 10:55 Blood Pressure 147/82 H 12/16/19 10:55 Pulse Oximetry 95 12/16/19 10:55 Temperature 36.5 C 12/16/19 10:55 Temperature Source Skin 12/16/19 10:55 Pulse 114 H 12/16/19 10:55 Respiratory Rate 16 12/16/19 10:55 Respiratory Effort Non-Labored 12/16/19 10:55 Blood Pressure 147/82 H 12/16/19 10:55 Blood Pressure Position Sitting 12/16/19 10:55 Pulse Oximetry 95 12/16/19 10:55 Oxygen Delivery Method Room Air 12/16/19 10:55 Oxygen Flow Rate 0 12/16/19 10:55 Pain Level 7 12/16/19 10:55 Lab/Test Results Lab/Test Results: POC Strep Test-MARQUISE(Rapid) Start: 12/16/19 10:57 Freq: .Rapid Strep Test Status: Active Protocol: Document 12/16/19 11:02 [facility] (Rec: 12/16/19 11:02 [facility] [id number]) Strep test-MARQUISE(Rapid)-POC POC-Strep test-MARQUISE (Rapid) Positive POC-Strep test-MARQUISE (Rapid) Positive
[2019-12-16 11:38] VITALS: BP 118/71; PULSE 109; TEMP 37.5; O2SAT 96
[2019-12-16] MEDS: Acetaminophen 500 MG TAB 1000 MG PO (11:47)
--- NOTE | 2019-12-16 12:34 | DI.VRAD_ITS ---
PROCEDURE INFORMATION: Exam: XR Chest, 2 Views Exam date and time: 12/16/2019 11:55 AM Age: 54 years old Clinical indication: Other: Cough, fever C/O rll pneumonia clinically; Prior surgery; Surgery date: 6+ months; Additional info: Cough, fever C/O rll pneumonia clinically x 2days TECHNIQUE: Imaging protocol: XR of the chest Views: 2 views. COMPARISON: CR CHEST 2 VIEWS PA,LAT 09/28/2017 10:28 AM FINDINGS: Lungs: Interstitial prominence and chronic granulomatous disease. Extensive right-sided airspace disease, consistent with bronchopneumonia in the appropriate clinical setting. Pleural space: No significant pleural effusion. Heart/Mediastinum: Normal configuration of the heart. Bones/joints: Stable surgical clips overlying the inferior thoracic spine. Degenerative change prior IMPRESSION: Extensive right-sided airspace disease, consistent with bronchopneumonia in the appropriate clinical setting. Dictated and Authenticated by: Steve Krueger MD. Ordering:ARRON Penaloza MD
== END 2019-12-16 15:03 | disposition home or self-care (01) ==
PROVIDERS: Emergency Provider Physician Assistant; PCP Physician Assistant Medical
DX: J18.8 Other pneumonia, unspecified organism (principal); H66.93 Otitis media, unspecified, bilateral; J02.0 Streptococcal pharyngitis; Z11.59 Encounter for screening for other viral diseases
CPT/HCPCS: 87449; 87880; 99284; 71046

== ENCOUNTER 2019-12-17 10:39 | Inpatient (IN) | payer MEDICARE, OTHER, SELFPAY ==
[2019-12-17 10:43] VITALS: BP 96/61; PULSE 101; RESP 22; TEMP 36.7; O2SAT 94
--- NOTE | 2019-12-17 11:13 | W.ED.GENAD ---
Discharge Plan Disposition Patient Disposition: [facility] Condition: Fair Discharge Details Chief Complaint: RespSymp Clinical Impression: Sepsis, Pneumonia Admit Date/Time: 12/17/19 11:08 Admit Provider: Moshe Figueroa Attending Provider: Moshe Figueroa Primary Care Provider: Sheila Lara ED Provider: Ca Gonzalez Discharge Data Discharge Date/Time-TO BE ENTERED AT DEPARTURE: 12/17/19 12:46 Medical Decision Making Is a 54-year-old patient presenting to the emergency room after initial evaluation yesterday. Patient was seen in the emergency room and diagnosed with otitis media bilaterally, strep throat and an extensive right-sided pneumonia. Patient declined admission after evaluation yesterday. Patient preferred trial of outpatient management patient discharged on oral antibiotics. Patient reports she has vomited her oral antibiotics today. Continues to feel worse and is now requesting admission to the hospital. Patient reports continuing to feel feverish. Patient does report mild shortness of breath but lacks chest pain. Patient denies any abdominal pain at this time. Denies back pain. Patient does report mild headache, little malaise, fatigue. Patient has decreased p.o. intake but does continue to make urine. Patient denies any lower extremity swelling. Patient denies any other concerns or complaints at this time. Labs ordered. Vital signs reviewed. Patient is mildly hypotensive and tachycardic. Given patient's known extensive right-sided pneumonia I am somewhat concerned for the possibility of strep pneumonia infection and possible bacteremia given vital sign changes noted today. Patient is ill-appearing. IV access obtained and fluids ordered. Spoke with hospitalist regarding patient's presentation, hospitalist will accept patient's admission to the hospital. Recommended Rocephin IV after blood cultures obtained. Recommended continue IV fluid. Will accept patient's admission. HPI General Date/Time Provider Initiated Documentation: 12/17/19 10:49. HPI Narrative: This is a 54-year-old patient returning to the emergency room for complaints of persistent illness. Patient was evaluated in the emergency room yesterday. Patient reports she was seen in the emergency room yesterday diagnosed with an extensive right-sided pneumonia as well as otitis media bilaterally and strep throat. Patient reports she was discharged home on Augmentin and doxycycline she did try to take these p.o. medications but has vomited them. Patient reports difficulty holding her medication down, reports increase in ill feeling. Patient does report mild shortness of breath. Patient concerned that she declined admission yesterday but is requesting admission today. Patient reports persistent cough, sore throat, headache. Patient has decreased urine output but is still making urine, decreased p.o. intake. Patient denies any other concerns or complaints at this time. Patient returned seeking admission. Related Data Home Medications Medication Instructions Recorded Confirmed baclofen 20 mg PO TID 06/09/17 12/17/19 carbidopa-levodopa 1 ea PO TID 06/09/17 12/17/19 fluoxetine 80 mg PO QAM 06/09/17 12/17/19 gabapentin 800 mg PO DIRECTED 06/09/17 12/17/19 quetiapine 400 mg PO HS 06/09/17 12/17/19 trazodone 50 mg PO HS 06/09/17 12/17/19 Cannabidiol 20 - 40 mg PO QID PRN PRN 07/29/17 12/17/19 multivitamin 1 ea PO DAILY 07/29/17 12/17/19 tizanidine 1 - 2 tab PO QID PRN 07/29/17 12/17/19 dronabinol [Marinol] 2.5 mg PO BID 08/29/17 12/17/19 meclizine 25 mg PO BID PRN #10 tab 06/01/19 12/17/19 albuterol sulfate [Proventil HFA] 2 puff IH Q6H PRN #8.5 gm 12/16/19 12/17/19 amoxicillin-pot clavulanate 1 tab PO BID #20 tab 12/16/19 [Augmentin] benzonatate [Tessalon Perles] 100 mg PO TID PRN #10 cap 12/16/19 12/17/19 doxycycline hyclate 100 mg PO BID #20 cap 12/16/19 naproxen 500 mg PO BID 12/16/19 12/17/19 ofloxacin 10 drp OT DAILY 7 Days ml 12/16/19 12/17/19 Previous Rx's Medication Instructions Recorded meclizine 25 mg PO BID PRN #10 tab 06/01/19 albuterol sulfate [Proventil HFA] 2 puff IH Q6H PRN #8.5 gm 12/16/19 amoxicillin-pot clavulanate 1 tab PO BID #20 tab 12/16/19 [Augmentin] benzonatate [Tessalon Perles] 100 mg PO TID PRN #10 cap 12/16/19 doxycycline hyclate 100 mg PO BID #20 cap 12/16/19 ofloxacin 10 drp OT DAILY 7 Days ml 12/16/19 Allergies Allergy/AdvReac Type Severity Reaction Status Date / Time morphine AdvReac very Unverified 12/16/19 10:59 loopy General Stated Complaint: RespSymp JOEY: 3 Review of Systems All systems reviewed & are unremarkable except as noted in HPI and below Constitutional Constitutional: Reports chills, Reports fatigue, Reports fever(s), Reports headache(s) and Reports malaise ENT Ears, Nose, Mouth, and Throat: Reports otalgia, Reports headache(s), Reports nasal congestion, Denies sinus pain and Reports sore throat Cardiovascular Cardiovascular: Denies chest pain and Denies dyspnea on exertion Respiratory Respiratory: Reports cough, Denies dyspnea on exertion and Denies wheezing Gastrointestinal Gastrointestinal: Denies abdominal pain, Reports nausea and Reports vomiting Genitourinary Genitourinary: Denies hematuria, Denies dysuria and Denies flank pain Musculoskeletal Musculoskeletal: Denies back pain, Denies myalgias, Denies muscle weakness and Denies numbness Neurologic Neurologic: Reports headache(s) and Denies numbness Endocrine Endocrine: Reports fatigue Allergic/Immunologic Allergic/Immunologic: Denies wheezing PFSH Medical History Anemia Chronic pain Depression Dystonia (Chronic) Fatigue Incontinence Insomnia Light-headedness (Chronic) Low back pain Lymphadenopathy (Chronic) Pain in left knee Raynauds syndrome Sarcoidosis TMJ (temporomandibular joint disorder) Vitamin D deficiency Surgical History (Updated 12/17/19 @ 12:25 by Moshe Figueroa MD) Colonoscopy - MAC (08/29/17) 08/29/17 Dr Bonner - incomplete prep, rec'd repeat with 2 day prep. mg S/P deep brain stimulator placement (Acute) Social History Smoking/Tobacco Use Status: Never Alcohol Intake: never Drug use: Never Substance use type: does not use Do you feel safe at home: Yes Do you feel safe in your relationship?: Yes Exam Narrative Exam Narrative: CONST: Ill appearing patient, in no acute distress. Alert and oriented. HENMT: Head nomocephalic, normal to inspection. Atraumatic. Hearing grossly normal. TMs with erythema and bulging bilaterally, pharyngeal erythema with exudate present. No evidence of peritonsillar abscess at this time. EYES: General normal appearance. Alignment normal. Eyelids normal. Conjunctiva normal. NECK: Normal visual inspection. FROM. Trachea midline. No Midline tenderness. Cervical lymphadenopathy present CHEST: Normal insepection of the chest. RESP: Normal respiratory effort. Speaking full sentences. No cough. No audible wheezing. No retractions. Breath sounds are equal bilaterally. Mild rhonchi on the right. No significant wheezing at this time. CARDIO: No JVD. Tachycardia noted, no murmurs. Regular rhythm GI: Bowel sounds are present in all 4 quadrants, abdomen is soft and nontender. MUSCULOSKELETAL: Normal Gait. FROM of all extremities. SKIN: Normal. Dry. No rashes. NEURO: Alert and awake. Speech clear. PSYCH: Normal affect. Cooperative. Course Vital Signs Vital signs: Vital Signs Temperature 36.7 C 12/17/19 10:43 Pulse 101 H 12/17/19 10:43 Respiratory Rate 22 12/17/19 10:43 Blood Pressure 96/61 L 12/17/19 10:43 Pulse Oximetry 94 L 12/17/19 10:43 Temperature 36.7 C 12/17/19 10:43 Temperature Source Skin 12/17/19 10:43 Pulse 101 H 12/17/19 10:43 Respiratory Rate 22 12/17/19 10:43 Blood Pressure 96/61 L 12/17/19 10:43 Blood Pressure Position Sitting 12/17/19 10:43 Pulse Oximetry 94 L 12/17/19 10:43 Oxygen Delivery Method Room Air 12/17/19 10:43 Oxygen Flow Rate 0 12/17/19 10:43 Lab/Test Results Lab/Test Results: 12/17/19 10:53 Blood Blood Culture - Pending 12/17/19 10:53 Blood Blood Culture - Pending
[2019-12-17 11:35] LABS: Lactate 1.8 mmol/L (0.6-1.4)
[2019-12-17] MEDS: Acetaminophen 325 MG TAB 650 MG PO (11:35)
[2019-12-17] MEDS: Normal Saline 1,000 ML 1000 ML IV (11:36)
[2019-12-17] MEDS: cefTRIAXone 1 GM/50 ML BAG IVPB (11:36)
[2019-12-17 11:53] LABS: ALT 21 U/L (14-59); AST 14 U/L (15-37); Albumin 2.6 g/dL (3.4-5.0); Alkaline Phosphatase 31 U/L (46-116); Anion Gap 5.6 mmol/L (3-11); BUN 18 mg/dL (7-18); Bilirubin, Total 0.7 mg/dL (0.2-1.0); CO2 31.4 mmol/L (21.0-32.0); CREATININE 0.97 mg/dL (0.55-1.02); Calcium 9.3 mg/dL (8.5-10.1); Chloride 101 mmol/L (98-107); Glucose 113 mg/dL (74-106); Potassium 4.4 mmol/L (3.5-5.1); Sodium 138 mmol/L (136-145); Total Protein 7.4 g/dL (6.4-8.2)
[2019-12-17 11:55] LABS: HGB 11.7 g/dL (12.0-15.5); Mean Corp. HGB Concentration 33.4 g/dL (32.0-36.0); Mean Corpuscular Hemoglobin 28.7 pg (27.0-33.0); Mean Platelet Volume 11.3 fL (8.0-11.0); Platelet Count 246 x1000/uL (130-400); RBC 4.07 m/cumm (4.00-5.20); RBC Distribution Width 13.1 % (11.7-14.6); White Blood Cell Count 20.29 k/cumm (4.4-10.8)
--- NOTE | 2019-12-17 11:59 | HPE_ITS ---
Date of service: 12/17/19 Time of Service: 11:59 Assessment and Plan Assessment and plan (1) Pneumonia: Status: Acute Assessment and plan: Community-acquired pneumonia, non-smoker with a label of sarcoid but no documentation available as to whether or not this has involved her lungs. Positive strep on throat [id number] testing yesterday and the clinical picture is compatible with streptococcal pneumonia and otitis media. I am going to treat as such pending blood cultures, with oxygen supplementation, PRN albuterol, IV fluids and ceftriaxone. Expand antibiotic coverage if not improving as expected. (2) Sepsis: Status: Acute Assessment and plan: Tachycardic with soft blood pressure on presentation, modest elevation of lactate, moderate elevation of white blood count. Hemodynam ically better with IV fluids. Management as above. (3) Otitis media: Status: Acute Assessment and plan: No history of recurrent ear problems. Probably acute infection and suspect streptococcal pathogen. Treatment as above with ceftriaxone. She does not have otitis externa, no perforation or ventilation tube so I do not think we need to continue with the ofloxacin eardrops. (4) Strep throat: Status: Acute Assessment and plan: Management with ceftriaxone and analgesics PRN. There are no physical findings of peritonsillar abscess (5) Dystonia: Status: Chronic Assessment and plan: Chronic problem, do not have any past records regarding work-up. I am can continue her outpatient management with carbidopa levodopa, baclofen, as needed tizanidine and gabapentin. (6) Depression: Status: None Assessment and plan: No indication that there has been a significant change in this chronic problem. Continue fluoxetine and quetiapine and trazodone as per outpatient med list. (7) Vomiting and diarrhea: Status: Acute Assessment and plan: Symptoms began with her respiratory symptoms and probably are related. Symptoms worsened after starting on antibiotics and is possible some GI upset from doxycycline and/or amoxicillin/clavulanic acid. IV fluids, symptom treatment with ondansetron if needed. If symptoms persist, further work-up will be initiated. History of Present Illness History of Present Illness Chief Complaint: Cough, shortness of breath, weakness , recurrent vomiting Narrative: 54-year-old woman who is a non-smoker, works in a daycare, returns to the emergency room today because of inability to keep down the oral antibiotics that were prescribed yesterday. She presented with a week history of episodic nausea, vomiting, diarrhea, bilateral ear pain, sore throat and cough. Evaluation was notable for bilateral otitis media, pharyngitis with positive strep on [id number] testing and a chest x-ray chato wing a right upper lobe infiltrate. She was offered admission at the time due to borderline acceptable oxygen saturation levels on room air and her symptoms. She declined and was discharged on doxycycline, Augmentin, ofloxacin and symptom treatment with an albuterol inhaler and benzonatate capsules for cough. Her first symptoms were GI related with nausea and diarrhea then some vomiting. Within a day or 2 developed bilateral ear pain, sore throat and then a cough intermittent and nonproductive. She has had some vague chest discomfort but not pleuritic. No measured fevers at home. Energy level has been down. Some increased urinary frequency but no dysuria. No rash. Multiple ill exposures at the daycare where she works. Reports that she had increased stomach upset after starting on the antibiotics and was unable to keep them down, feeling generally weaker, more short of breath and represented to the emergency room. She was mildly tachycardic and mildly hypotensive on presentation with room air SPO2 of 94%. Her lactate is mildly elevated at 1.8. Influenza swab yesterday was negative. Review of Systems Narrative: Chronic pain right arm with dystonic movements, limited functional ability with the right arm. Current medications marginally helpful. Has had recent implantation (September 2019) of deep brain stimulator. She is not impressed that it has made much difference with her symptoms. No new neurologic symptoms with this current illness. All systems reviewed & are unremarkable except as noted in HPI and below PFSH Medical History Anemia Chronic pain Depression Dystonia (Chronic) Fatigue Incontinence Insomnia Light-headedness (Chronic) Low back pain Lymphadenopathy (Chronic) Pain in left knee Raynauds syndrome Sarcoidosis TMJ (temporomandibular joint disorder) Vitamin D deficiency Surgical History (Updated 12/17/19 @ 12:25 by Moshe Figueroa MD) Colonoscopy - MAC (08/29/17) 08/29/17 Dr Bonner - incomplete prep, rec'd repeat with 2 day prep. mg S/P deep brain stimulator placement (Acute) Social History Smoking/Tobacco Use Status: Never Alcohol Intake: never Drug use: Never Substance use type: does not use Do you feel safe at home: Yes Do you feel safe in your relationship?: Yes Female Reproductive History Menstrual Menopause type: natural Meds Home Medications and Allergies Home Medications Medication Instructions Recorded Confirmed Type baclofen 20 mg PO TID 06/09/17 12/17/19 History carbidopa-levodopa 1 ea PO TID 06/09/17 12/17/19 History fluoxetine 80 mg PO QAM 06/09/17 12/17/19 History gabapentin 800 mg PO DIRECTED 06/09/17 12/17/19 History quetiapine 400 mg PO HS 06/09/17 12/17/19 History trazodone 50 mg PO HS 06/09/17 12/17/19 History Cannabidiol 20 - 40 mg PO QID PRN PRN 07/29/17 12/17/19 History multivitamin 1 ea PO DAILY 07/29/17 12/17/19 History tizanidine 1 - 2 tab PO QID PRN 07/29/17 12/17/19 History dronabinol [Marinol] 2.5 mg PO BID 08/29/17 12/17/19 History meclizine 25 mg PO BID PRN #10 tab 06/01/19 12/17/19 Rx albuterol sulfate [Proventil HFA] 2 puff IH Q6H PRN #8.5 gm 12/16/19 12/17/19 Rx amoxicillin-pot clavulanate 1 tab PO BID #20 tab 12/16/19 Rx [Augmentin] benzonatate [Tessalon Perles] 100 mg PO TID PRN #10 cap 12/16/19 12/17/19 Rx doxycycline hyclate 100 mg PO BID #20 cap 12/16/19 Rx naproxen 500 mg PO BID 12/16/19 12/17/19 History ofloxacin 10 drp OT DAILY 7 Days ml 12/16/19 12/17/19 Rx Allergies Allergy/AdvReac Type Severity Reaction Status Date / Time morphine AdvReac very Unverified 12/16/19 10:59 loopy Exam Narrative Exam Narrative: Woman appearing her stated age in no acute respiratory distress. Speaking in full sentences with no use of accessory muscles of respiration. Temperature 36.7 blood pressure 96/61 pulse regular 101 SaO2 room air 94%. No facial asymmetry. Speech is clear. Sclera without injection or discharge. No trismus. Pharynx erythematous soft palate and tonsillar pillars no ulcerations no exudate. Both tympanic membranes distorted with inflammatory changes the right is bulging. Ear canal looks like it has had recent trauma and she admits to episodic use of Q-tips in her ears. Neck supple no cervical adenopathy. Left upper chest has an implanted pulse generator with clean incision line and no erythema or tenderness. Lungs with inspiratory crackles in the mid and upper right lung alanzi, somewhat diminished breath sounds at the base. No rub heard no wheezing. Clear on the left. Heart rhythm regular no murmur S3 or S4. Active bowel sounds. No abdominal tenderness. Extremities are warm with good pulses in the feet. She has dystonic posturing of the right hand with index and fifth fingers abducted, flexed middle and fourth fingers. She has a little bit of movement of her hand. She has voluntary and coordinated movement with the shoulder. 1+ DTRs at the knees I do not get anything at elbows. Sits up without any assistance. No ataxia. Oriented x4. Results Chest x-ray from December 15 shows extensive right sided infiltrate. Labs Result diagrams: 12/17/19 11:25 12/17/19 11:25 Labs: Laboratory Results - last 24 hr 12/17/19 11:25 Lactate 1.8 H Last Vital Signs Temp 36.7 C 12/17/19 10:43 Pulse 101 H 12/17/19 10:43 Resp 22 12/17/19 10:43 BP 96/61 L 12/17/19 10:43 Pulse Ox 94 L 12/17/19 10:43
[2019-12-17 12:32] LABS: Absolute Lymphocyte Count 1.83 k/cumm (1.2-3.4); Absolute Monocyte Count 0.81 k/cumm (0.11-0.7); Absolute Neutrophil Count 17.65 k/cumm (1.2-6.7)
[2019-12-17 12:33] LABS: Diff Comment Manual Differential
[2019-12-17 12:34] VITALS: RESP 2; RESP 7
[2019-12-17] MEDS: Albuterol/Ipratropium 3 ML UPD VIAL (12:34)
[2019-12-17] MEDS: Baclofen 10 MG TAB 20 MG PO ×2 (13:08→20:49)
[2019-12-17] MEDS: Lactated Ringers 1,000 ML 150 ML IV ×2 (13:08→20:49)
[2019-12-17 13:21] VITALS: BP 108/71; PULSE 92; RESP 18; TEMP 36.8; O2SAT 92
[2019-12-17] MEDS: Carbidopa 25/Levodopa 100 TAB PO ×2 (13:52→20:49)
[2019-12-17] MEDS: Gabapentin 800 MG TAB PO ×2 (13:52→20:47)
[2019-12-17 15:25] VITALS: BP 95/58; PULSE 89; RESP 19; TEMP 37.4; O2SAT 93
[2019-12-17 19:46] VITALS: BP 109/67; PULSE 96; RESP 20; TEMP 37.1; O2SAT 90
[2019-12-17] MEDS: QUEtiapine 300 MG TAB PO (21:14)
[2019-12-17] MEDS: QUEtiapine 100 MG TAB PO (21:14)
[2019-12-17] MEDS: traZODone 50 MG TAB PO (21:14)
[2019-12-18] VITALS (16 sets, daily range): BP systolic 104–129; BP diastolic 61–77; PULSE 86–100; RESP 2–24; TEMP 37.1–37.9; O2SAT 91–96
[2019-12-18] MEDS: Lactated Ringers 1,000 ML 150 ML IV ×2 (03:19→11:53)
[2019-12-18 06:46] LABS: HGB 10.9 g/dL (12.0-15.5); Mean Corpuscular Hemoglobin 28.5 pg (27.0-33.0); Mean Corpuscular Volume 86.4 fL (80-95); Mean Platelet Volume 10.9 fL (8.0-11.0); Platelet Count 236 x1000/uL (130-400); RBC 3.82 m/cumm (4.00-5.20); RBC Distribution Width 13.4 % (11.7-14.6); White Blood Cell Count 11.24 k/cumm (4.4-10.8)
[2019-12-18] MEDS: Gabapentin 800 MG TAB PO ×3 (07:49→20:18)
[2019-12-18] MEDS: Multivitamin TAB 1 TAB PO (07:49)
[2019-12-18] MEDS: Acetaminophen 325 MG TAB 650 MG PO ×2 (07:50→17:54)
[2019-12-18] MEDS: FLUoxetine 20 MG CAP 80 MG PO (07:51)
[2019-12-18] MEDS: Carbidopa 25/Levodopa 100 TAB PO ×3 (07:51→20:18)
[2019-12-18] MEDS: Baclofen 10 MG TAB 20 MG PO ×3 (07:51→20:18)
[2019-12-18] MEDS: Normal Saline Flush 10 ML SYR IVP ×2 (07:52→14:52)
[2019-12-18] MEDS: cefTRIAXone 1 GM/50 ML BAG IVPB ×2 (07:52→14:52)
[2019-12-18] MEDS: Albuterol/Ipratropium 3 ML UPD VIAL UPD ×2 (13:02→17:56)
--- NOTE | 2019-12-18 14:23 | W.PM.PROGNOT ---
Date of Service Date of service: 12/18/19 Time of Service: 14:23 Assessment and Plan Assessment and plan (1) Pneumonia: Status: Acute Assessment and plan: Community-acquired pneumonia, non-smoker with a label of sarcoid but no documentation available as to whether or not this has involved her lungs. Positive strep on throat [id number] testing yesterday and the clinical picture is compatible with streptococcal pneumonia and otitis media. Increase her Rocephin dose to 2 g IV daily. Add Acapella to help mobilize sputum. Order sputum culture and urine strep antigen. Qualifiers: Laterality: right Lung location: lower lobe of lung Pneumonia type: due to unspecified organism Qualified Code(s): J18.9 - Pneumonia, unspecified organism (2) Sepsis: Status: Acute Assessment and plan: Blood culture showed no growth. (3) Otitis media: Status: Acute Assessment and plan: No evidence of perforation of her eardrums. No evidence of external otitis. Continue treatments Rocephin for presumed strep pneumococcal pneumonia.. (4) Strep throat: Status: Acute Assessment and plan: Management with ceftriaxone and analgesics PRN. There are no physical findings of peritonsillar abscess (5) Depression: Status: None Assessment and plan: No indication that there has been a significant change in this chronic problem. Continue fluoxetine and quetiapine and trazodone as per outpatient med list. Subjective Subjective Interval history since last seen: to her current level 11,000.Patient currently being treated for community-acquired right lower lobe pneumonia organism unknown but presumably due to strep pneumonia given her positive rapid strep throat swab. Patient also has bilateral otitis media. She currently receiving ceftriaxone 1 g IV daily. She is slowly improving. Sore throat is improving ears are improving. She has a harsh cough started to produce some sputum. No sputum culture was obtained and no urine was sent for strep urine antigen. I met increase her Rocephin to 2 g daily. Her white count has come down significantly from 20,000. She is remained afebrile. Exam Narrative Exam Narrative: Alert and oriented person place time circumstance. HEENT TMs are remarkable for erythema without exudate. She does have some scabbing of the external ear canals bilaterally. Patient admits that she was digging in her ears with Q-tips prior to admission. Throat is somewhat dry and erythematous but no exudate. Lungs reveal harsh rhonchi at the right lung base with some scattered bilateral expiratory wheezes. Heart is regular rate and rhythm. Abdomen soft nontender. Objective Objective Clinical Data: Abnormal lab results 12/18/19 Range/Units 06:25 WBC 11.24 H D (4.4-10.8) k/cumm RBC 3.82 L (4.00-5.20) m/cumm Hgb 10.9 L (12.0-15.5) g/dL Hct 33.0 L (36.0-46.0) % Vital Signs Temperature 37.5 C 12/18/19 11:34 Temperature Source Tympanic 12/18/19 11:34 Pulse 98 H 12/18/19 13:13 Pulse Rhythm Regular 12/18/19 07:40 Respiratory Rate 16 12/18/19 13:13 Respiratory Effort 12/18/19 07:57 Respiratory Depth Shallow 12/18/19 07:57 Respiratory Pattern Normal 12/18/19 07:57 Blood Pressure 112/67 12/18/19 11:34 Blood Pressure Position Sitting 12/17/19 10:43 Pulse Oximetry 93 L 12/18/19 13:13 Oxygen Delivery Method Room Air 12/18/19 13:02 Oxygen Flow Rate 0 12/18/19 13:02 Pain Level 7 12/18/19 11:34 Comment 12/18/19 07:44 Intake & Output 12/17/19 12/18/19 12/18/19 23:59 11:59 23:59 Intake Total 1340 / 1350 1974 / 2454 480 / 2455 Output Total 400 / 400 Balance 1340 / 1350 1575 / 2055 480 / 2055 Weight 79.379 kg 73.9 kg Intake: IV 1000 / 1010 1974 Oral 340 / 340 480 / 480 Output: Urine 400 / 400 Other: Urine Color Yellow Urine Appearance Clear Cloudy Urine Odor Normal Voiding Methods Toilet Laboratory Results WBC 11.24 k/cumm (4.4-10.8) H D 12/18/19 06:25 RBC 3.82 m/cumm (4.00-5.20) L 12/18/19 06:25 Hgb 10.9 g/dL (12.0-15.5) L 12/18/19 06:25 Hct 33.0 % (36.0-46.0) L 12/18/19 06:25 MCV 86.4 fL (80-95) 12/18/19 06:25 MCH 28.5 pg (27.0-33.0) 12/18/19 06:25 MCHC 33.0 g/dL (32.0-36.0) 12/18/19 06:25 RDW 13.4 % (11.7-14.6) 12/18/19 06:25 Plt Count 236 x1000/uL (130-400) 12/18/19 06:25 MPV 10.9 fL (8.0-11.0) 12/18/19 06:25 Immature Gran % See Differential 12/17/19 11:25 Neutrophils % 85.0 12/17/19 11:25 Band Neutrophils % 2.0 % 12/17/19 11:25 Lymphocytes % 6.0 12/17/19 11:25 Atypical Lymphs % 3.0 12/17/19 11:25 Monocytes % 4.0 12/17/19 11:25 Eosinophils % 0.0 12/17/19 11:25 Basophils % 0.0 12/17/19 11:25 Absolute Neutrophils 17.65 k/cumm (1.2-6.7) H 12/17/19 11:25 Absolute Lymphocytes 1.83 k/cumm (1.2-3.4) 12/17/19 11:25 Absolute Monocytes 0.81 k/cumm (0.11-0.7) H 12/17/19 11:25 Absolute Eosinophils 0.00 k/cumm (0.0-0.7) 12/17/19 11:25 Absolute Basophils 0.00 k/cumm (0.0-0.2) 12/17/19 11:25 Differential Comment Manual differential 12/17/19 11:25 Sodium 138 mmol/L (136-145) 12/17/19 11:25 Potassium 4.4 mmol/L (3.5-5.1) 12/17/19 11:25 Chloride 101 mmol/L (98-107) 12/17/19 11:25 Carbon Dioxide 31.4 mmol/L (21.0-32.0) 12/17/19 11:25 Anion Gap 5.6 mmol/L (3-11) 12/17/19 11:25 BUN 18 mg/dL (7-18) 12/17/19 11:25 Creatinine 0.97 mg/dL (0.55-1.02) 12/17/19 11:25 Estimated GFR/1.73 m2 >= 60.00 (mL/min/1.73m2) 12/17/19 11:25 Glucose 113 mg/dL (74-106) H 12/17/19 11:25 Lactate 1.8 mmol/L (0.6-1.4) H 12/17/19 11:25 Calcium 9.3 mg/dL (8.5-10.1) 12/17/19 11:25 Total Bilirubin 0.7 mg/dL (0.2-1.0) 12/17/19 11:25 AST 14 U/L (15-37) L 12/17/19 11:25 ALT 21 U/L (14-59) 12/17/19 11:25 Alkaline Phosphatase 31 U/L (46-116) L 12/17/19 11:25 Total Protein 7.4 g/dL (6.4-8.2) 12/17/19 11:25 Albumin 2.6 g/dL (3.4-5.0) L 12/17/19 11:25
--- NOTE | 2019-12-18 15:28 | W.NUTCONSULT ---
Date of service: 12/18/19 Time of Service: 15:29 Nutritional Consult ASSESSMENT: 54 year old female with PNA, sepsis, hx of depression. BMI wnl for age. Following Regular Diet with 100% completion. Not considered at nutritional risk. MONITORING AND EVALUATION: po intake, labs, weight Time Spent in Nutritional Counseling and Treatment: 0 time spent face to face
--- NOTE | 2019-12-18 16:44 | PDOC.CMIN ---
- If Service Date Differs Date of service: 12/18/19 Time of Service: 16:44 Care Management Initial Assess REASON FOR HOSPITALIZATION:: CAP, Strep PAST MEDICAL HISTORY/PAST SURGICAL HISTORY:: Medical History . Anemia. Chronic pain. Depression. Dystonia (Chronic). Fatigue. Incontinence. Insomnia. Light-headedness (Chronic). Low back pain. Lymphadenopathy (Chronic). Pain in left knee. Raynauds syndrome. Sarcoidosis. TMJ (temporomandibular joint disorder). Vitamin D deficiency. Surgical History (Updated 12/17/19 @ 12:25 by Moshe Figueroa MD). Colonoscopy - MAC (08/29/17). 08/29/17 Dr Bonner - incomplete prep, rec'd repeat with 2 day prep. mg. S/P deep brain stimulator placement (Acute) PREVIOUS FUNCTIONAL STATUS/SOCIAL/FAMILY SUPPORTS:: Theodora lives in [facility]. Her left about a year ago to live in [place]. He would like her to join him, but she reports that she hasn't been able to sell their home in [place] yet. They have 8 children and 25 grandchildren. One of her son's is currently living with her and helps care for her. 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 She plans to get her house ready to sell soon, but admits that it will be a lot of work, as her left all of his belongings behind. She is mostly independent with her ADL's, but has a lot of family support, if needed. CURRENT FUNCTIONAL STATUS:: Theodora was lying in bed when CM met with her. She reported that she is not feeling well today. She had been to the ED, and was sent home with PO medication, but was not able to keep it down. She returned to the ED and was admitted yesterday. Per provider, her white blood count is still elevated, but improving. CM will continue to follow. ADVANCE DIRECTIVES:: None on file. Has patient been provided with information about the portal?: No Did the patient sign up for the portal?: No CODE STATUS:: Full Code INSURANCE COVERAGE / FINANCIAL ISSUES:: [facility]/ [employer] CURRENT HOME/COMMUNITY SERVICES/EQUIPMENT:: Theodora currently does not have any equipment. She has support from [employer] currently. PRIMARY CARE PHYSICIAN:: Sheila Lara POTENTIAL DISCHARGE NEEDS:: Evaluations for further needs, follow up appointments PATIENT/FAMILY EDUCATION NEEDS:: Review discharge instructions regarding activity levels and medications, discussion of self care needs including ask me three ANTICIPATED BARRIERS TO DISCHARGE:: None identified at this time. TRANSPORTATION:: Theodora will likely be transported via private vehicle by family. PLAN:: Anticipate Theodora will return home when medically cleared. She will transport home via private vehicle when ready. She will follow up with her PCP, as recommended. CM will continue to follow.
[2019-12-18] MEDS: guaiFENesin 600 MG TABCR PO (20:18)
[2019-12-18] MEDS: traZODone 50 MG TAB PO (21:57)
[2019-12-18] MEDS: QUEtiapine 100 MG TAB PO (21:57)
[2019-12-18] MEDS: QUEtiapine 300 MG TAB PO (21:57)
[2019-12-18] MEDS: Lactated Ringers 1,000 ML 75 ML IV (23:07)
[2019-12-19] VITALS (9 sets, daily range): BP systolic 106–121; BP diastolic 60–75; PULSE 86–98; RESP 2–24; TEMP 36.6–37.3; O2SAT 91–96
[2019-12-19] MEDS: Albuterol/Ipratropium 3 ML UPD VIAL UPD ×3 (06:48→18:29)
[2019-12-19 06:49] LABS: Lactate 0.8 mmol/L (0.6-1.4)
[2019-12-19 06:55] LABS: Abs Immature Grans 0.16 k/cumm (0.0-0.09); HCT 31.7 % (36.0-46.0); HGB 10.3 g/dL (12.0-15.5); Mean Corp. HGB Concentration 32.5 g/dL (32.0-36.0); Mean Corpuscular Hemoglobin 28.4 pg (27.0-33.0); Mean Corpuscular Volume 87.3 fL (80-95); Mean Platelet Volume 10.5 fL (8.0-11.0); Platelet Count 250 x1000/uL (130-400); RBC 3.63 m/cumm (4.00-5.20); RBC Distribution Width 13.8 % (11.7-14.6); White Blood Cell Count 7.44 k/cumm (4.4-10.8)
[2019-12-19 07:25] LABS: Anion Gap 5.9 mmol/L (3-11); BUN 5 mg/dL (7-18); CO2 32.1 mmol/L (21.0-32.0); CREATININE 0.71 mg/dL (0.55-1.02); Calcium 8.6 mg/dL (8.5-10.1); Chloride 105 mmol/L (98-107); Glucose 91 mg/dL (74-106); Sodium 143 mmol/L (136-145)
[2019-12-19 07:28] LABS: Absolute Basophil Count 0.07 k/cumm (0.0-0.2); Absolute Eosinophil Count 0.37 k/cumm (0.0-0.7); Absolute Lymphocyte Count 1.04 k/cumm (1.2-3.4); Absolute Monocyte Count 0.67 k/cumm (0.11-0.7); Absolute Neutrophil Count 5.28 k/cumm (1.2-6.7); Atypical Lymphocytes % 1; Diff Comment Manual Differential; RBC Morphology Normal
[2019-12-19] MEDS: FLUoxetine 20 MG CAP 80 MG PO (07:49)
[2019-12-19] MEDS: cefTRIAXone 2 GM/50 ML BAG IVPB (07:50)
[2019-12-19] MEDS: Baclofen 10 MG TAB 20 MG PO ×3 (07:50→20:00)
[2019-12-19] MEDS: Multivitamin TAB 1 TAB PO (07:50)
[2019-12-19] MEDS: guaiFENesin 600 MG TABCR PO ×2 (07:50→20:00)
[2019-12-19] MEDS: Carbidopa 25/Levodopa 100 TAB PO ×3 (07:50→20:00)
[2019-12-19] MEDS: Gabapentin 800 MG TAB PO ×3 (07:50→20:00)
[2019-12-19] MEDS: Acetaminophen 325 MG TAB 650 MG PO ×2 (08:49→20:00)
[2019-12-19 10:50] LABS: Magnesium 1.9 mg/dL (1.8-2.4)
[2019-12-19] MEDS: Potassium Chloride 20 MEQ TABCR 40 MEQ PO (11:08)
--- NOTE | 2019-12-19 11:42 | PHA.ADMREV ---
Pharmacy Clinical Review - Admission Clinical Review (Last Reviewed 12/17/19 @ 12:23 by Moshe Figueroa MD) Vomiting and diarrhea (Acute) Pneumonia (Acute) Otitis media (Acute) Strep throat (Acute) Sepsis (Acute) Pneumonia (Acute) morphine Adverse Reaction (Unverified 12/16/19 10:59) very loopy Height 5 ft 4 in Weight 75.6 kg - Renal Dosing Renal Dosing: BUN 5 mg/dL (7-18) L 12/19/19 06:38 Creatinine 0.71 mg/dL (0.55-1.02) 12/19/19 06:38 Medications needing adjustments: Reviewed - Anticoagulation Anticoagulation: Hgb 10.3 g/dL (12.0-15.5) L 12/19/19 06:38 Hct 31.7 % (36.0-46.0) L 12/19/19 06:38 Plt Count 250 x1000/uL (130-400) 12/19/19 06:38 Creatinine 0.71 mg/dL (0.55-1.02) 12/19/19 06:38 DVT Prohphylaxis: N/A - Opiate Usage Evaluate Pain Scale/Pains Meds: N/A - Relevant Labs Sodium 143 mmol/L (136-145) 12/19/19 06:38 Potassium 3.0 mmol/L (3.5-5.1) L D 12/19/19 06:38 Chloride 105 mmol/L (98-107) 12/19/19 06:38 Magnesium 1.9 mg/dL (1.8-2.4) 12/19/19 06:38 Electrolytes, C-Reactive P, ESR: Reviewed (K+ replaced orally) - Antimicrobial Stewardship Antibiotic appropriateness: Reviewed Surgical Abx d/c within 24 hr: N/A - DM Control DM Control: Glucose 91 mg/dL (74-106) 12/19/19 06:38 Insulin Dosing: N/A - Heart Failure/AK EF%, ROBY's, B-Blockers, Diuretics: N/A - BP Control BP Control: Blood Pressure 121/73 Blood Pressure 110/73 Blood Pressure 104/61 If elevated: Reviewed - QTc Review If Elevated: Reviewed (Not measured but on multiple QTc prolonging medications: zofran, seroquel, trazodone, tizanidine) - IV to PO Switch IV Medications: Reviewed - Home Meds Home Med List reviewed: Reviewed Relevent Home Meds Not ordered & why?: dronabinol, meclizine, naproxen - Current meds Current Medication Order Review: Reviewed
--- NOTE | 2019-12-19 12:04 | W.PM.PROGNOT ---
Date of Service Date of service: 12/19/19 Time of Service: 12:04 Assessment and Plan Assessment and plan (1) Pneumonia: Status: Acute Assessment and plan: Continue high-dose Rocephin 2 g IV daily. Continue to monitor her daily CBC and inflammatory markers. Continue with aerosolized bronchodilators. Hopefully will be able to transition oral antibiotics tomorrow and plan for discharge the end of this week. I would like to see her oxygen requirements improved before discharge. I recheck her chest x-ray prior to discharge.. Qualifiers: Pneumonia type: due to unspecified organism Laterality: right Lung location: lower lobe of lung Qualified Code(s): J18.9 - Pneumonia, unspecified organism (2) Otitis media: Status: Acute Assessment and plan: No evidence of perforation of her eardrums. No evidence of external otitis. Continue treatments Rocephin for presumed strep pneumococcal pneumonia.. Qualifiers: Otitis media type: serous Chronicity: acute Laterality: bilateral Recurrence: non-recurrent Qualified Code(s): H65.03 - Acute serous otitis media, bilateral (3) Strep throat: Status: Acute Assessment and plan: Management with ceftriaxone and analgesics PRN. There are no physical findings of peritonsillar abscess (4) Depression: Status: None Assessment and plan: No indication that there has been a significant change in this chronic problem. Continue fluoxetine and quetiapine and trazodone as per outpatient med list. Qualifiers: Depression Type: major depressive disorder Major depression recurrence: recurrent Active/Remission status: in remission of unspecified degree Qualified Code(s): F33.40 - Major depressive disorder, recurrent, in remission, unspecified Subjective Subjective Interval history since last seen: Patient is having more pain in her right shoulder and arm secondary to her dystonia. She refuses any examination involves passive range of motion of the arm. She says she is tried multiple medications in the past including muscle relaxers which have not helped. She has had implantation of deep brain stimulator to try to help with the pain which so far has not been successful. She says at home she is tried soaking in a hot tub and says that heat does seem to help. I been a trying aqua cell K pad. With respect to her pneumonia she remains afebrile. Cough is nonproductive and minimal coughing at this point. Her leukocytosis is resolved. Her oxygen saturation is 91 to 93% but she remains on nasal cannula at 2 L/min. She is still on Rocephin 2 g IV daily for strep pharyngitis as well as presumed strep pneumonia. She remains on scheduled DuoNeb treatments every 6 hours. I did decrease her duo nebs to as needed. I will get a follow-up chest x-ray prior to her discharge. Exam Narrative Exam Narrative: Alert and oriented person place time circumstance. HEENT Throat is somewhat dry and erythematous but no exudate. Lungs reveal harsh rhonchi at the right lung base with some scattered bilateral expiratory wheezes. Heart is regular rate and rhythm. Abdomen soft nontender. Right shoulder and upper arm is tender with range of motion testing.There is dystonia with range of motion testing Objective Objective Clinical Data: Abnormal lab results 12/19/19 12/19/19 Range/Units 06:38 06:38 RBC 3.63 L (4.00-5.20) m/cumm Hgb 10.3 L (12.0-15.5) g/dL Hct 31.7 L (36.0-46.0) % Absolute Lymphocytes 1.04 L (1.2-3.4) k/cumm Potassium 3.0 L D (3.5-5.1) mmol/L Carbon Dioxide 32.1 H (21.0-32.0) mmol/L BUN 5 L (7-18) mg/dL Vital Signs Temperature 36.7 C 12/19/19 07:21 Temperature Source Temporal Artery Scan 12/19/19 07:21 Pulse 86 12/19/19 07:21 Pulse Rhythm Regular 12/19/19 08:45 Respiratory Rate 16 12/19/19 11:21 Respiratory Effort Non-Labored 12/19/19 08:45 Respiratory Depth Normal 12/19/19 08:45 Respiratory Pattern Normal 12/19/19 08:45 Blood Pressure 121/73 12/19/19 07:21 Blood Pressure Position Sitting 12/17/19 10:43 Pulse Oximetry 93 L 12/19/19 11:21 Oxygen Delivery Method Nasal Cannula 12/19/19 11:21 Oxygen Flow Rate 2 12/19/19 11:21 Pain Level 6 12/19/19 08:49 Comment 12/18/19 07:44 Intake & Output 12/18/19 12/19/19 12/19/19 23:59 11:59 23:59 Intake Total 1490 / 3465 50 / 50 Balance 1490 / 3065 50 / 50 Weight 75.6 kg Intake: IV 1010 / 2985 Oral 480 / 480 / 50 Other: Urine Color Yellow Urine Appearance Clear Clear Urine Odor Normal Comment voids independently. Voiding Methods Toilet Incontinent Laboratory Results WBC 7.44 k/cumm (4.4-10.8) D 12/19/19 06:38 RBC 3.63 m/cumm (4.00-5.20) L 12/19/19 06:38 Hgb 10.3 g/dL (12.0-15.5) L 12/19/19 06:38 Hct 31.7 % (36.0-46.0) L 12/19/19 06:38 MCV 87.3 fL (80-95) 12/19/19 06:38 MCH 28.4 pg (27.0-33.0) 12/19/19 06:38 MCHC 32.5 g/dL (32.0-36.0) 12/19/19 06:38 RDW 13.8 % (11.7-14.6) 12/19/19 06:38 Plt Count 250 x1000/uL (130-400) 12/19/19 06:38 MPV 10.5 fL (8.0-11.0) 12/19/19 06:38 Immature Gran % 0.0 % 12/19/19 06:38 Neutrophils % 71.0 12/19/19 06:38 Band Neutrophils % 0.0 % 12/19/19 06:38 Lymphocytes % 13.0 12/19/19 06:38 Atypical Lymphs % 1 12/19/19 06:38 Monocytes % 9.0 12/19/19 06:38 Eosinophils % 5.0 12/19/19 06:38 Basophils % 1.0 12/19/19 06:38 Absolute Neutrophils 5.28 k/cumm (1.2-6.7) 12/19/19 06:38 Absolute Lymphocytes 1.04 k/cumm (1.2-3.4) L 12/19/19 06:38 Absolute Monocytes 0.67 k/cumm (0.11-0.7) 12/19/19 06:38 Absolute Eosinophils 0.37 k/cumm (0.0-0.7) 12/19/19 06:38 Absolute Basophils 0.07 k/cumm (0.0-0.2) 12/19/19 06:38 Differential Comment Manual differential 12/19/19 06:38 RBC Morphology Normal 12/19/19 06:38 Sodium 143 mmol/L (136-145) 12/19/19 06:38 Potassium 3.0 mmol/L (3.5-5.1) L D 12/19/19 06:38 Chloride 105 mmol/L (98-107) 12/19/19 06:38 Carbon Dioxide 32.1 mmol/L (21.0-32.0) H 12/19/19 06:38 Anion Gap 5.9 mmol/L (3-11) 12/19/19 06:38 BUN 5 mg/dL (7-18) L 12/19/19 06:38 Creatinine 0.71 mg/dL (0.55-1.02) 12/19/19 06:38 Estimated GFR/1.73 m2 >= 60.00 (mL/min/1.73m2) 12/19/19 06:38 Glucose 91 mg/dL (74-106) 12/19/19 06:38 Lactate 0.8 mmol/L (0.6-1.4) 12/19/19 06:38 Calcium 8.6 mg/dL (8.5-10.1) 12/19/19 06:38 Magnesium 1.9 mg/dL (1.8-2.4) 12/19/19 06:38 Total Bilirubin 0.7 mg/dL (0.2-1.0) 12/17/19 11:25 AST 14 U/L (15-37) L 12/17/19 11:25 ALT 21 U/L (14-59) 12/17/19 11:25 Alkaline Phosphatase 31 U/L (46-116) L 12/17/19 11:25 Total Protein 7.4 g/dL (6.4-8.2) 12/17/19 11:25 Albumin 2.6 g/dL (3.4-5.0) L 12/17/19 11:25
[2019-12-19] MEDS: Potassium Chloride 20 MEQ TABCR PO ×2 (13:13→20:00)
--- NOTE | 2019-12-19 16:13 | CMPROGNOTE_ITS ---
- If Service Date Differs Date of service: 12/19/19 Time of Service: 16:13 Care Management Progress Note S/O: Theodora was lying in bed when CM met with her. She reported that she is alive and kicking. CM discussed the plan for Theodora to wean off of O2, as she doesn't currently require it at home. She will also remain on IV abx, per MD. She is agreeable to the plan. CM will continue to follow. A: Theodora is a 54 year old female admitted to [facility] for CAP, Strep on 12/17/19. P: Anticipate Theodora will return home when medically cleared. She will transport home via private vehicle when ready. She will follow up with her PCP, as recommended. CM will continue to follow.
[2019-12-19] MEDS: traZODone 50 MG TAB PO (22:07)
[2019-12-19] MEDS: QUEtiapine 100 MG TAB PO (22:07)
[2019-12-19] MEDS: QUEtiapine 300 MG TAB PO (22:07)
[2019-12-20] VITALS (11 sets, daily range): BP systolic 105–135; BP diastolic 68–87; PULSE 84–93; RESP 2–22; TEMP 36.5–36.9; O2SAT 88–98
[2019-12-20] MEDS: Acetaminophen 325 MG TAB 650 MG PO (03:26)
[2019-12-20] MEDS: Albuterol/Ipratropium 3 ML UPD VIAL UPD ×3 (06:38→18:30)
[2019-12-20 07:15] LABS: Anion Gap 6.3 mmol/L (3-11); BUN 6 mg/dL (7-18); CO2 30.7 mmol/L (21.0-32.0); CREATININE 0.73 mg/dL (0.55-1.02); Calcium 8.7 mg/dL (8.5-10.1); Chloride 105 mmol/L (98-107); Glucose 87 mg/dL (74-106); Potassium 3.8 mmol/L (3.5-5.1); Sodium 142 mmol/L (136-145)
--- NOTE | 2019-12-20 08:17 | DI.RAD_ITS ---
EXAM: XR CHEST 2V PA LATERAL CLINICAL HISTORY: Follow-up with pneumonia TECHNIQUE: 2D digital imaging was performed. COMPARISON: No exams were available for comparison FINDINGS: Infiltrates are again noted in the right middle and lower lobes. The infiltrates appear slightly les s dense when compared with the previous exam. A small right pleural effusion is now visible. The le ft lung remains clear. A stimulator device is again noted overlying the left chest wall. Surgical c lips are seen near the diaphragm. IMPRESSION: Mild interval decrease in density of pulmonary infiltrates. Small right pleural effusion. DATA REPOSITORY: RADIATION DOSE DELIVERED:
[2019-12-20] MEDS: cefTRIAXone 2 GM/50 ML BAG IVPB (09:02)
[2019-12-20] MEDS: FLUoxetine 20 MG CAP 80 MG PO (09:02)
[2019-12-20] MEDS: guaiFENesin 600 MG TABCR PO ×2 (09:02→19:44)
[2019-12-20] MEDS: Gabapentin 800 MG TAB PO ×3 (09:03→19:44)
[2019-12-20] MEDS: Potassium Chloride 20 MEQ TABCR PO (09:03)
[2019-12-20] MEDS: Baclofen 10 MG TAB 20 MG PO ×3 (09:03→19:44)
[2019-12-20] MEDS: Multivitamin TAB 1 TAB PO (09:03)
[2019-12-20] MEDS: Carbidopa 25/Levodopa 100 TAB PO ×3 (09:03→19:44)
[2019-12-20] MEDS: traMADol 50 MG TAB 100 MG PO ×3 (09:22→22:18)
[2019-12-20] MEDS: Normal Saline Flush 10 ML SYR IVP (09:22)
[2019-12-20] MEDS: Amoxicillin 875/Clav. 125 TAB PO (11:46)
--- NOTE | 2019-12-20 16:02 | PGE_ITS ---
Date of Service Date of service: 12/20/19 Time of Service: 16:02 Assessment and Plan Assessment and plan (1) Pneumonia: Status: Acute Assessment and plan: DC Augmentin. Initiate Zosyn and doxycycline. Check urine strep antigen as well as Legionella. Obtain mycoplasma titers. Start IV corticosteroids. Qualifiers: Pneumonia type: due to unspecified organism Laterality: right Lung location: lower lobe of lung Qualified Code(s): J18.9 - Pneumonia, unspecified organism (2) Strep throat: Status: Acute Assessment and plan: Improving (3) Dystonia: Status: Chronic Assessment and plan: Right shoulder pain is much better today. She did require some tramadol. Subjective Subjective Interval history since last seen: Patient remains afebrile. Still has a cough but not as intense. No sputum production yet. We really do not have any clinical microbiology to go on as far as treatment of her pneumonia. I suspect this is an interstitial pneumonitis going on. She still gets significantly winded with any kind of activity is still requiring supplemental oxygen to maintain her saturation. I have ordered atypical studies include mycoplasma and Legionella studies. We will get a high-resolution CT scan of her chest in the morning and I am going to start her on IV corticosteroids tonight to see if this makes a difference in terms of inflammation and gas exchange. I did a [id number] ultrasound study on her today she has diffuse bilateral B-lines and a small right pleural effusion with some atelectatic lung at the right lung base. This morning I was going to switch her from Rocephin to Augmentin in hopes that we can get her home in the next day. However I do not think she is m emani a significant improvement enough for discharge in the next day or 2. I will discontinue the Augmentin and put her on Zosyn along with the doxycycline. Exam Narrative Exam Narrative: Thin middle-aged female in no distress. HEENT is unremarkable. Lungs reveal bilateral basilar rales no rhonchi or wheezes heart is regular rate and rhythm. Abdomen is benign Objective Objective Clinical Data: Abnormal lab results 12/20/19 Range/Units 06:23 BUN 6 L (7-18) mg/dL Vital Signs Temperature 36.9 C 12/20/19 15:25 Temperature Source Tympanic 12/20/19 15:25 Pulse 86 12/20/19 15:25 Pulse Rhythm Regular 12/20/19 10:51 Respiratory Rate 22 12/20/19 15:25 Respiratory Effort Short of Breath 12/20/19 10:51 Respiratory Depth Normal 12/20/19 10:51 Respiratory Pattern Normal 12/20/19 10:51 Blood Pressure 105/68 12/20/19 15:25 Blood Pressure Position Sitting 12/17/19 10:43 Pulse Oximetry 95 12/20/19 15:25 Oxygen Delivery Method Nasal Cannula 12/20/19 15:25 Oxygen Flow Rate 1 12/20/19 15:25 Pain Level 6 12/20/19 15:25 Comment 12/20/19 11:56 Intake & Output 12/19/19 12/20/19 12/20/19 23:59 11:59 23:59 Intake Total 1490 / 1590 360 / 600 240 / 600 Output Total 1600 / 1600 Balance 1490 / 1590 -1240 / -1000 240 / -1000 Weight 75.5 kg Intake: IV 1010 / 1060 Oral 480 / 530 360 / 600 240 / 600 Output: Urine 1600 / 1600 Other: Urine Color Yellow Yellow Urine Appearance Clear Clear Urine Odor Normal None Voiding Methods Toilet Toilet Laboratory Results WBC 7.44 k/cumm (4.4-10.8) D 12/19/19 06:38 RBC 3.63 m/cumm (4.00-5.20) L 12/19/19 06:38 Hgb 10.3 g/dL (12.0-15.5) L 12/19/19 06:38 Hct 31.7 % (36.0-46.0) L 12/19/19 06:38 MCV 87.3 fL (80-95) 12/19/19 06:38 MCH 28.4 pg (27.0-33.0) 12/19/19 06:38 MCHC 32.5 g/dL (32.0-36.0) 12/19/19 06:38 RDW 13.8 % (11.7-14.6) 12/19/19 06:38 Plt Count 250 x1000/uL (130-400) 12/19/19 06:38 MPV 10.5 fL (8.0-11.0) 12/19/19 06:38 Immature Gran % 0.0 % 12/19/19 06:38 Neutrophils % 71.0 12/19/19 06:38 Band Neutrophils % 0.0 % 12/19/19 06:38 Lymphocytes % 13.0 12/19/19 06:38 Atypical Lymphs % 1 12/19/19 06:38 Monocytes % 9.0 12/19/19 06:38 Eosinophils % 5.0 12/19/19 06:38 Basophils % 1.0 12/19/19 06:38 Absolute Neutrophils 5.28 k/cumm (1.2-6.7) 12/19/19 06:38 Absolute Lymphocytes 1.04 k/cumm (1.2-3.4) L 12/19/19 06:38 Absolute Monocytes 0.67 k/cumm (0.11-0.7) 12/19/19 06:38 Absolute Eosinophils 0.37 k/cumm (0.0-0.7) 12/19/19 06:38 Absolute Basophils 0.07 k/cumm (0.0-0.2) 12/19/19 06:38 Differential Comment Manual differential 12/19/19 06:38 RBC Morphology Normal 12/19/19 06:38 Sodium 142 mmol/L (136-145) 12/20/19 06:23 Potassium 3.8 mmol/L (3.5-5.1) D 12/20/19 06:23 Chloride 105 mmol/L (98-107) 12/20/19 06:23 Carbon Dioxide 30.7 mmol/L (21.0-32.0) 12/20/19 06:23 Anion Gap 6.3 mmol/L (3-11) 12/20/19 06:23 BUN 6 mg/dL (7-18) L 12/20/19 06:23 Creatinine 0.73 mg/dL (0.55-1.02) 12/20/19 06:23 Estimated GFR/1.73 m2 >= 60.00 (mL/min/1.73m2) 12/20/19 06:23 Glucose 87 mg/dL (74-106) 12/20/19 06:23 Lactate 0.8 mmol/L (0.6-1.4) 12/19/19 06:38 Calcium 8.7 mg/dL (8.5-10.1) 12/20/19 06:23 Magnesium 1.9 mg/dL (1.8-2.4) 12/19/19 06:38 Total Bilirubin 0.7 mg/dL (0.2-1.0) 12/17/19 11:25 AST 14 U/L (15-37) L 12/17/19 11:25 ALT 21 U/L (14-59) 12/17/19 11:25 Alkaline Phosphatase 31 U/L (46-116) L 12/17/19 11:25 Total Protein 7.4 g/dL (6.4-8.2) 12/17/19 11:25 Albumin 2.6 g/dL (3.4-5.0) L 12/17/19 11:25
--- NOTE | 2019-12-20 16:04 | PDOC.CMPRO ---
- If Service Date Differs Date of service: 12/20/19 Time of Service: 16:04 Care Management Progress Note S/O: Theodora was sitting up in bed when CM met with her. Her mother, Brigid was in the room with her. Theodora reported that she is now on 1L of O2, which is improved from yesterday. CM will continue to follow. A: Theodora is a 54 year old female admitted to [facility] for CAP, Strep on 12/17/19. P: Anticipate Theodora will return home when medically cleared. She will transport home via private vehicle when ready. She will follow up with her PCP, as recommended. CM will continue to follow.
[2019-12-20] MEDS: methylPREDNISolone SUCC 125 MG VIAL 60 MG IVP (17:37)
[2019-12-20] MEDS: Doxycycline Hyclate 100 MG CAP PO (17:37)
[2019-12-20] MEDS: AMPICILLIN/SULBACTAM 3 GM in Normal Saline 100 ML IVPB (18:30)
[2019-12-20] MEDS: QUEtiapine 100 MG TAB PO (22:15)
[2019-12-20] MEDS: traZODone 50 MG TAB PO (22:15)
[2019-12-20] MEDS: QUEtiapine 300 MG TAB PO (22:15)
[2019-12-21] VITALS (10 sets, daily range): BP systolic 104–128; BP diastolic 64–80; PULSE 97–100; RESP 2–22; TEMP 36.5–37.7; O2SAT 88–100
--- NOTE | 2019-12-21 | DI.CT_ITS ---
EXAM: CT CHEST HIGH RESOLUTION CLINICAL HISTORY: Interstitial pneumonitis. TECHNIQUE: Imaging protocol: Axial computed tomography images were obtained and coronal and sagittal reformatted images were created and reviewed. COMPARISON: CT CHEST W/ HRCT from 07/13/2017 XR CHEST 2V PA LATERAL from 12/20/2019 FINDINGS: Tracheobronchial tree: Patent where visualized. Mediastinum and Mónica: Multiple calcified mediastinal and bilateral hilar adenopathy. Pulmonary parenchyma: Ground-glass opacities present in the right upper, right middle and right lower lobes. Areas of consolidation involving the right upper lobe right middle and right lower lobes. T here is a multiloculated, thick-walled, 0.8 x 4.2 x 3.8 cm cystic lesion in the right upper lobe. Th ere is a 2nd similarly thick-walled lesion in the right lower lobe. It measures 2.8 x 2.6 x 3.1 cm. There is a 1.9 x 2.5 cm, rounded opacity in the posterior aspect of the right upper lobe. This may represent an area of rounded pneumonia or atelectasis. There is peribronchial thickening centrally predominantly on the right. Pleura: Small right pleural effusion. No left pleural effusion. Heart: The heart is not dilated. No coronary artery calcifications are seen. No pericardial effusion. Aorta: Thoracic aorta non-dilated. Upper abdomen: Unremarkable. Lymph nodes: Please see above Bones:Degenerative changes in the thoracic spine. Tubes, Catheters, and Lines: There is a battery pack in the left anterior chest wall. IMPRESSION: 1. Right upper, middle and lower lobe infiltrate suspicious for pneumonia. 2. Thick-walled cavities seen in the right upper and lower lobes. Findings raise the question of abs cesses. 3. Rounded opacity in the posterior aspect of the right upper lobe. This may represent a rounded pne umonia or atelectasis. 4. Small right pleural effusion. 5. Pulmonary findings consistent with sarcoidosis. DATA REPOSITORY: All CT scans at this facility are submitted to the National Radiology Data Registry (NRDR) Dose Index Registry (DIR) with the [employer] ([employer]). RADIATION OPTIMIZATION: All CT scans at this facility use at least one of these dose optimization te chniques: automated exposure control; mA and/or kV adjustment per patient size (includes targeted exa ms where dose is matched to clinical indication); or iterative reconstruction.
[2019-12-21] MEDS: Doxycycline Hyclate 100 MG CAP PO ×2 (04:58→16:11)
[2019-12-21] MEDS: AMPICILLIN/SULBACTAM 3 GM in Normal Saline 100 ML IVPB ×5 (04:58→23:44)
[2019-12-21 07:36] LABS: Abs Immature Grans 0.15 k/cumm (0.0-0.09); Absolute Basophil Count 0.02 k/cumm (0.0-0.2); Absolute Eosinophil Count 0.01 k/cumm (0.0-0.7); Absolute Lymphocyte Count 1.13 k/cumm (1.2-3.4); Absolute Monocyte Count 0.14 k/cumm (0.11-0.7); Absolute Neutrophil Count 7.11 k/cumm (1.2-6.7); Basophils % 0.2; Eosinophils % 0.1; HCT 33.9 % (36.0-46.0); HGB 10.8 g/dL (12.0-15.5); Immature Grans % 1.8 %; Lymphocytes % 13.2; Mean Corp. HGB Concentration 31.9 g/dL (32.0-36.0); Mean Corpuscular Hemoglobin 28.1 pg (27.0-33.0); Mean Corpuscular Volume 88.1 fL (80-95); Mean Platelet Volume 10.4 fL (8.0-11.0); Monocytes % 1.6; Neutrophils % 83.1; RBC 3.85 m/cumm (4.00-5.20); RBC Distribution Width 13.8 % (11.7-14.6); White Blood Cell Count 8.56 k/cumm (4.4-10.8)
[2019-12-21 07:49] LABS: Anion Gap 12.6 mmol/L (3-11); BUN 13 mg/dL (7-18); C-Reactive Protein 12.67 mg/dL (0.0-0.3); CO2 25.4 mmol/L (21.0-32.0); Calcium 9.3 mg/dL (8.5-10.1); Chloride 100 mmol/L (98-107); Glucose 119 mg/dL (74-106); Potassium 3.9 mmol/L (3.5-5.1); Sodium 138 mmol/L (136-145)
[2019-12-21 08:01] LABS: Diff Comment Agrees w/ Instrument; Platelet Count 374 x1000/uL (130-400)
[2019-12-21 08:02] LABS: Polychromasia Present
[2019-12-21] MEDS: FLUoxetine 20 MG CAP 80 MG PO (08:57)
[2019-12-21] MEDS: Normal Saline Flush 10 ML SYR IVP ×3 (08:57→23:43)
[2019-12-21] MEDS: methylPREDNISolone SUCC 125 MG VIAL 60 MG IVP ×4 (08:57→23:43)
[2019-12-21] MEDS: Carbidopa 25/Levodopa 100 TAB PO ×3 (08:58→19:58)
[2019-12-21] MEDS: Baclofen 10 MG TAB 20 MG PO ×3 (08:58→19:58)
[2019-12-21] MEDS: Multivitamin TAB 1 TAB PO (08:58)
[2019-12-21] MEDS: Gabapentin 800 MG TAB PO ×3 (08:58→19:58)
[2019-12-21] MEDS: guaiFENesin 600 MG TABCR PO ×2 (08:58→19:58)
[2019-12-21 09:04] LABS: ESR 115 mm/hr (0-30)
[2019-12-21] MEDS: Albuterol/Ipratropium 3 ML UPD VIAL UPD ×3 (12:18→23:43)
--- NOTE | 2019-12-21 14:30 | PDOC.CMPRO ---
- If Service Date Differs Date of service: 12/21/19 Time of Service: 14:30 Care Management Progress Note S/O: Theodora was sitting up in her chair when CM met with her. She reported that she had been to have a CT today, and that she is feeling a little better. She requested that CM contact her route sales representative at the [place], [employer] ([phone]), who requested verification of Theodora's inpatient stay at [facility]. CM called and left a message with [employer]. Theodora reported that this was for a separate matter than this admission, but this admission is delaying Theodora's response to [employer]. CM will continue to follow. A: Theodora is a 54 year old female admitted to [facility] for CAP, Strep on 12/17/19. P: Anticipate Theodora will return home when medically cleared. She will transport home via private vehicle when ready. She will follow up with her PCP, as recommended. CM will continue to follow.
--- NOTE | 2019-12-21 17:01 | PGE_ITS ---
Date of Service Date of service: 12/21/19 Time of Service: 17:01 Assessment and Plan Assessment and plan (1) Pneumonia: Status: Acute Assessment and plan: This appears to be a complex pneumonia with the possibility of a pulmonary abscess which would explain her right shoulder pain. I have asked radiology to push her CT scan and chest x-ray findings to [facility] radiology department. I have called [facility] transfer center requesting a pulmonology consultation. For now we will continue with Unasyn and doxycycline. I feel that she may need referral to pulmonology for protected bronchial washing/culture if her pneumonia is not clearing. She may benefit from an ID consult (unfortunately I did not have the time to call [facility] ID to discuss her case today). Qualifiers: Laterality: right Lung location: lower lobe of lung Pneumonia type: due to unspecified organism Qualified Code(s): J18.9 - Pneumonia, unspecified organism (2) Strep throat: Status: Resolved Assessment and plan: throat is better and has been adequately treated w/ her parenteral antibiotics (3) Otitis media: Status: Resolved Assessment and plan: resolved. no drainage and no perforation of her tympa rolly membranes (per my exam couple of days ago) Qualifiers: Otitis media type: serous Chronicity: acute Laterality: bilateral Recurrence: non-recurrent Qualified Code(s): H65.03 - Acute serous otitis media, bilateral (4) Dystonia: Status: Chronic Assessment and plan: arm/shoulder spasms are better. She is chronically on muscle relaxants. Tramadol was added couple days ago for her pain. Subjective Subjective Interval history since last seen: Minimal cough still nonproductive. At rest she is not short of breath but with activity she gets short of breath. She still requiring oxygen although she is now down to 1 L/min per nasal cannula. She remains afebrile. She underwent a CT scan of her chest this morning under high resolution this demonstrated right upper middle and lower lobe infiltrates consistent with pneumonia however there is some thick walled cavity seen in the right upper and lower lobes raising questionable abscesses. She has small right pleural effusion and has bilateral hilar mediastinal adenopathy consistent with her diagnosis of sarcoidosis. I changed her antibiotic treatment to Unasyn along with doxycycline. The Unasyn will cover anaerobes which the CTRX did not. Her leukocytosis is resolved now. Atypical studies are still pending including Legionella mycoplasma studies. Urine strep antigen is pending. C-reactive protein remains high at 12.6 Exam Narrative Exam Narrative: Middle-age female sitting up in her chair watching TV. She is alert and oriented person place time circumstance. Not in any respiratory discomfort. Lungs are clear on the left side right side there is some crackles at the right base no rhonchi or wheezes. Heart is regular rate and rhythm Objective Objective Clinical Data: Abnormal lab results 12/21/19 12/21/19 Range/Units 07:20 07:20 RBC 3.85 L (4.00-5.20) m/cumm Hgb 10.8 L (12.0-15.5) g/dL Hct 33.9 L (36.0-46.0) % MCHC 31.9 L (32.0-36.0) g/dL Absolute Neutrophils 7.11 H (1.2-6.7) k/cumm Absolute Lymphocytes 1.13 L (1.2-3.4) k/cumm ESR 115 H (0-30) mm/hr Anion Gap 12.6 H (3-11) mmol/L Glucose 119 H (74-106) mg/dL C-Reactive Protein 12.67 H (0.0-0.3) mg/dL Vital Signs Temperature 36.5 C 12/21/19 15:38 Temperature Source Temporal Artery Scan 12/21/19 15:38 Pulse 97 H 12/21/19 15:38 Pulse Rhythm Regular 12/21/19 13:27 Respiratory Rate 20 12/21/19 15:38 Respiratory Effort 12/21/19 13:27 Respiratory Depth Shallow 12/21/19 13:27 Respiratory Pattern Normal 12/21/19 13:27 Blood Pressure 128/80 12/21/19 15:38 Blood Pressure Position Sitting 12/17/19 10:43 Pulse Oximetry 92 L 12/21/19 15:38 Oxygen Delivery Method Nasal Cannula 12/21/19 15:38 Oxygen Flow Rate 1 12/21/19 15:38 Pain Level 6 12/21/19 15:38 Comment 12/21/19 15:38 Intake & Output 12/20/19 12/21/19 12/21/19 23:59 11:59 23:59 Intake Total 340 / 700 690 / 940 250 / 940 Output Total 400 / 2000 1850 / 1850 Balance -60 / -1300 -1160 / -910 250 / -910 Weight 73.2 kg Intake: IV 100 / 100 210 / 210 Oral 240 / 600 480 / 730 250 / 730 Output: Urine 1999 Other: Urine Color Yellow Yellow Urine Appearance Clear Clear Clear Urine Odor Normal Normal Voiding Methods Toilet Toilet Laboratory Results WBC 8.56 k/cumm (4.4-10.8) 12/21/19 07:20 RBC 3.85 m/cumm (4.00-5.20) L 12/21/19 07:20 Hgb 10.8 g/dL (12.0-15.5) L 12/21/19 07:20 Hct 33.9 % (36.0-46.0) L 12/21/19 07:20 MCV 88.1 fL (80-95) 12/21/19 07:20 MCH 28.1 pg (27.0-33.0) 12/21/19 07:20 MCHC 31.9 g/dL (32.0-36.0) L 12/21/19 07:20 RDW 13.8 % (11.7-14.6) 12/21/19 07:20 Plt Count 374 x1000/uL (130-400) D 12/21/19 07:20 MPV 10.4 fL (8.0-11.0) 12/21/19 07:20 Immature Gran % 1.8 % 12/21/19 07:20 Neutrophils % 83.1 12/21/19 07:20 Band Neutrophils % 0.0 % 12/19/19 06:38 Lymphocytes % 13.2 12/21/19 07:20 Atypical Lymphs % 1 12/19/19 06:38 Monocytes % 1.6 12/21/19 07:20 Eosinophils % 0.1 12/21/19 07:20 Basophils % 0.2 12/21/19 07:20 Absolute Neutrophils 7.11 k/cumm (1.2-6.7) H 12/21/19 07:20 Absolute Lymphocytes 1.13 k/cumm (1.2-3.4) L 12/21/19 07:20 Absolute Monocytes 0.14 k/cumm (0.11-0.7) 12/21/19 07:20 Absolute Eosinophils 0.01 k/cumm (0.0-0.7) 12/21/19 07:20 Absolute Basophils 0.02 k/cumm (0.0-0.2) 12/21/19 07:20 Differential Comment Agrees w/ instrument 12/21/19 07:20 RBC Morphology See below 12/21/19 07:20 Polychromasia Present 12/21/19 07:20 ESR 115 mm/hr (0-30) H 12/21/19 07:20 Sodium 138 mmol/L (136-145) 12/21/19 07:20 Potassium 3.9 mmol/L (3.5-5.1) 12/21/19 07:20 Chloride 100 mmol/L (98-107) 12/21/19 07:20 Carbon Dioxide 25.4 mmol/L (21.0-32.0) 12/21/19 07:20 Anion Gap 12.6 mmol/L (3-11) H 12/21/19 07:20 BUN 13 mg/dL (7-18) D 12/21/19 07:20 Creatinine 0.80 mg/dL (0.55-1.02) 12/21/19 07:20 Estimated GFR/1.73 m2 >= 60.00 (mL/min/1.73m2) 12/21/19 07:20 Glucose 119 mg/dL (74-106) H 12/21/19 07:20 Lactate 0.8 mmol/L (0.6-1.4) 12/19/19 06:38 Calcium 9.3 mg/dL (8.5-10.1) 12/21/19 07:20 Magnesium 1.9 mg/dL (1.8-2.4) 12/19/19 06:38 Total Bilirubin 0.7 mg/dL (0.2-1.0) 12/17/19 11:25 AST 14 U/L (15-37) L 12/17/19 11:25 ALT 21 U/L (14-59) 12/17/19 11:25 Alkaline Phosphatase 31 U/L (46-116) L 12/17/19 11:25 C-Reactive Protein 12.67 mg/dL (0.0-0.3) H 12/21/19 07:20 Total Protein 7.4 g/dL (6.4-8.2) 12/17/19 11:25 Albumin 2.6 g/dL (3.4-5.0) L 12/17/19 11:25
[2019-12-21] MEDS: traMADol 50 MG TAB 100 MG PO (21:40)
[2019-12-21] MEDS: traZODone 50 MG TAB PO (21:41)
[2019-12-21] MEDS: QUEtiapine 300 MG TAB PO (21:41)
[2019-12-21] MEDS: QUEtiapine 100 MG TAB PO (21:41)
[2019-12-22] VITALS (10 sets, daily range): BP systolic 117–138; BP diastolic 69–82; PULSE 80–95; RESP 2–18; TEMP 36.6–37.1; O2SAT 2–97
[2019-12-22] MEDS: Doxycycline Hyclate 100 MG CAP PO ×2 (03:43→16:36)
[2019-12-22] MEDS: AMPICILLIN/SULBACTAM 3 GM in Normal Saline 100 ML IVPB ×3 (05:44→17:27)
[2019-12-22] MEDS: Albuterol/Ipratropium 3 ML UPD VIAL UPD ×3 (05:44→17:26)
[2019-12-22 07:28] LABS: Abs Immature Grans 0.19 k/cumm (0.0-0.09); HGB 10.5 g/dL (12.0-15.5); Mean Corp. HGB Concentration 31.8 g/dL (32.0-36.0); Mean Corpuscular Hemoglobin 28.3 pg (27.0-33.0); Mean Corpuscular Volume 88.9 fL (80-95); Mean Platelet Volume 10.5 fL (8.0-11.0); Platelet Count 429 x1000/uL (130-400); RBC 3.71 m/cumm (4.00-5.20); RBC Distribution Width 14.1 % (11.7-14.6); White Blood Cell Count 11.52 k/cumm (4.4-10.8)
[2019-12-22 07:35] LABS: Anion Gap 5.5 mmol/L (3-11); BUN 17 mg/dL (7-18); CO2 29.5 mmol/L (21.0-32.0); CREATININE 0.78 mg/dL (0.55-1.02); Calcium 8.8 mg/dL (8.5-10.1); Chloride 102 mmol/L (98-107); Glucose 117 mg/dL (74-106); Sodium 137 mmol/L (136-145)
[2019-12-22 07:37] LABS: C-Reactive Protein 6.29 mg/dL (0.0-0.3)
[2019-12-22] MEDS: traMADol 50 MG TAB 100 MG PO ×2 (07:57→14:38)
[2019-12-22] MEDS: guaiFENesin 600 MG TABCR PO ×2 (07:57→19:48)
[2019-12-22] MEDS: Multivitamin TAB 1 TAB PO (07:57)
[2019-12-22] MEDS: FLUoxetine 20 MG CAP 80 MG PO (07:57)
[2019-12-22] MEDS: Baclofen 10 MG TAB 20 MG PO ×3 (07:57→19:47)
[2019-12-22] MEDS: Gabapentin 800 MG TAB PO ×3 (07:57→19:48)
[2019-12-22] MEDS: Carbidopa 25/Levodopa 100 TAB PO ×3 (07:57→19:47)
[2019-12-22] MEDS: Normal Saline Flush 10 ML SYR IVP ×4 (07:58→17:27)
[2019-12-22] MEDS: methylPREDNISolone SUCC 125 MG VIAL 60 MG IVP ×2 (07:58→16:37)
[2019-12-22 08:01] LABS: Absolute Lymphocyte Count 1.84 k/cumm (1.2-3.4); Absolute Monocyte Count 0.69 k/cumm (0.11-0.7); Absolute Neutrophil Count 8.76 k/cumm (1.2-6.7); Atypical Lymphocytes % 2
[2019-12-22 08:02] LABS: Diff Comment Manual Differential; RBC Morphology Normal
--- NOTE | 2019-12-22 16:43 | CMPROGNOTE_ITS ---
- If Service Date Differs Date of service: 12/22/19 Time of Service: 16:43 Care Management Progress Note S/O: No changes in the plan of care today, Theodora remains inpatient and receiving IV abx. Length of treatment to be determined, CM to continue to assess for discharge needs including possibility of home oxygen at time of discharge. A: Theodora is a 54 year old female admitted to [facility] for CAP, Strep on 12/17/19. P: Anticipate Theodora will return home when medically cleared. She will transport home via private vehicle when ready. She will follow up with her PCP, as recommended. CM will continue to follow.
--- NOTE | 2019-12-22 18:34 | W.PM.PROGNOT ---
Date of Service Date of service: 12/22/19 Time of Service: 18:34 Assessment and Plan Assessment and plan (1) Pneumonia: Status: Acute Assessment and plan: Complicated by pulmonary abscess. CRP improving on Unasyn and doxycycline. Continue to trend. Does not require bronchoscopy, per [facility] pulmonology. Continue abx as above; wean O2 as tolerated. Qualifiers: Pneumonia type: due to unspecified organism Laterality: right Lung location: lower lobe of lung Qualified Code(s): J18.9 - Pneumonia, unspecified organism (2) Lung abscess: Status: Acute Assessment and plan: As above (3) Strep throat: Status: Resolved Assessment and plan: Improving on above abx. Continue. (4) Otitis media: Status: Acute Assessment and plan: Still having some symptoms today - ears feel full. Continue current abx. Qualifiers: Otitis media type: serous Chronicity: acute Laterality: bilateral Recurrence: non-recurrent Qualified Code(s): H65.03 - Acute serous otitis media, bilateral (5) Dystonia: Status: Chronic Assessment and plan: Continue muscule relaxants/neurontin. (6) Discharge planning issues: Status: Acute Assessment and plan: Full code Continues to require hospitalization. Will likely need 4-6 weeks of abx, but would be expected to switch to PO. (7) DVT prophylaxis: Status: Acute Assessment and plan: Start Lovenox Subjective Subjective Interval history since last seen: Feels better. Denies dizziness. Cough more productive. Reports a constant midsternal pain. Denies nausea/vomiting. Throat and neck feel better. Still gets short of breath on minimal exertion. Exam Narrative Exam Narrative: General: Very pleasant middle-aged female, sitting up in a chair, A&OX3, not in acute distress HEENT: EOMI, MMM Heart: RRR, mildly tachycardic, no m/r/g Lungs: coarse rhonchi B, R>L Abdomen: soft, nontender, nondistended Extremities: no e/c/c BLE's Objective Objective Clinical Data: Abnormal lab results 12/22/19 12/22/19 12/22/19 Range/Units 07:00 07:00 07:00 WBC 11.52 H D (4.4-10.8) k/cumm RBC 3.71 L (4.00-5.20) m/cumm Hgb 10.5 L (12.0-15.5) g/dL Hct 33.0 L (36.0-46.0) % MCHC 31.8 L (32.0-36.0) g/dL Plt Count 429 H (130-400) x1000/uL Absolute Neutrophils 8.76 H (1.2-6.7) k/cumm Glucose 117 H (74-106) mg/dL C-Reactive Protein 6.29 H (0.0-0.3) mg/dL Vital Signs Temperature 37.0 C 12/22/19 16:50 Temperature Source Tympanic 12/22/19 16:50 Pulse 95 H 12/22/19 16:50 Pulse Rhythm Regular 12/22/19 17:36 Respiratory Rate 14 12/22/19 16:50 Respiratory Effort 12/22/19 17:36 Respiratory Depth Normal 12/22/19 17:36 Respiratory Pattern Normal 12/22/19 17:36 Blood Pressure 127/69 12/22/19 16:50 Blood Pressure Position Sitting 12/17/19 10:43 Pulse Oximetry 97 12/22/19 16:50 Oxygen Delivery Method Room Air 12/22/19 16:50 Oxygen Flow Rate 0 12/22/19 16:50 Pain Level 6 12/22/19 16:50 Comment 12/21/19 23:36 Intake & Output 12/21/19 12/22/19 12/22/19 23:59 11:59 23:59 Intake Total 650 / 1340 510 / 1060 550 / 1060 Balance 650 / -510 510 / 1060 550 / 1060 Intake: IV 200 / 410 210 / 310 100 / 310 Oral 450 / 930 300 / 750 450 / 750 Other: Urine Color Yellow Urine Appearance Clear Clear Urine Odor None Comment Pt reorts she voided into the toilet at ths time. Voiding Methods Toilet Toilet Laboratory Results WBC 11.52 k/cumm (4.4-10.8) H D 12/22/19 07:00 RBC 3.71 m/cumm (4.00-5.20) L 12/22/19 07:00 Hgb 10.5 g/dL (12.0-15.5) L 12/22/19 07:00 Hct 33.0 % (36.0-46.0) L 12/22/19 07:00 MCV 88.9 fL (80-95) 12/22/19 07:00 MCH 28.3 pg (27.0-33.0) 12/22/19 07:00 MCHC 31.8 g/dL (32.0-36.0) L 12/22/19 07:00 RDW 14.1 % (11.7-14.6) 12/22/19 07:00 Plt Count 429 x1000/uL (130-400) H 12/22/19 07:00 MPV 10.5 fL (8.0-11.0) 12/22/19 07:00 Immature Gran % See Differential 12/22/19 07:00 Neutrophils % 76.0 12/22/19 07:00 Band Neutrophils % 0.0 % 12/19/19 06:38 Lymphocytes % 14.0 12/22/19 07:00 Atypical Lymphs % 2 12/22/19 07:00 Monocytes % 6.0 12/22/19 07:00 Eosinophils % 0.0 12/22/19 07:00 Basophils % 0.0 12/22/19 07:00 Metamyelocytes % 1.0 % 12/22/19 07:00 Myelocytes % 1.0 % 12/22/19 07:00 Absolute Neutrophils 8.76 k/cumm (1.2-6.7) H 12/22/19 07:00 Absolute Lymphocytes 1.84 k/cumm (1.2-3.4) 12/22/19 07:00 Absolute Monocytes 0.69 k/cumm (0.11-0.7) 12/22/19 07:00 Absolute Eosinophils 0.00 k/cumm (0.0-0.7) 12/22/19 07:00 Absolute Basophils 0.00 k/cumm (0.0-0.2) 12/22/19 07:00 Differential Comment Manual differential 12/22/19 07:00 RBC Morphology Normal 12/22/19 07:00 Polychromasia Present 12/21/19 07:20 ESR 115 mm/hr (0-30) H 12/21/19 07:20 Sodium 137 mmol/L (136-145) 12/22/19 07:00 Potassium 4.0 mmol/L (3.5-5.1) 12/22/19 07:00 Chloride 102 mmol/L (98-107) 12/22/19 07:00 Carbon Dioxide 29.5 mmol/L (21.0-32.0) 12/22/19 07:00 Anion Gap 5.5 mmol/L (3-11) 12/22/19 07:00 BUN 17 mg/dL (7-18) 12/22/19 07:00 Creatinine 0.78 mg/dL (0.55-1.02) 12/22/19 07:00 Estimated GFR/1.73 m2 >= 60.00 (mL/min/1.73m2) 12/22/19 07:00 Glucose 117 mg/dL (74-106) H 12/22/19 07:00 Lactate 0.8 mmol/L (0.6-1.4) 12/19/19 06:38 Calcium 8.8 mg/dL (8.5-10.1) 12/22/19 07:00 Magnesium 1.9 mg/dL (1.8-2.4) 12/19/19 06:38 Total Bilirubin 0.7 mg/dL (0.2-1.0) 12/17/19 11:25 AST 14 U/L (15-37) L 12/17/19 11:25 ALT 21 U/L (14-59) 12/17/19 11:25 Alkaline Phosphatase 31 U/L (46-116) L 12/17/19 11:25 C-Reactive Protein 6.29 mg/dL (0.0-0.3) H 12/22/19 07:00 Total Protein 7.4 g/dL (6.4-8.2) 12/17/19 11:25 Albumin 2.6 g/dL (3.4-5.0) L 12/17/19 11:25
[2019-12-22] MEDS: QUEtiapine 100 MG TAB PO (22:17)
[2019-12-22] MEDS: QUEtiapine 300 MG TAB PO (22:17)
[2019-12-22] MEDS: traZODone 50 MG TAB PO (22:17)
[2019-12-23] VITALS (13 sets, daily range): BP systolic 104–138; BP diastolic 63–77; PULSE 65–98; RESP 1–22; TEMP 36.5–37.1; O2SAT 92–96
[2019-12-23] MEDS: Albuterol/Ipratropium 3 ML UPD VIAL UPD ×4 (00:18→18:03)
[2019-12-23] MEDS: AMPICILLIN/SULBACTAM 3 GM in Normal Saline 100 ML IVPB ×4 (00:19→18:03)
[2019-12-23] MEDS: Normal Saline Flush 10 ML SYR IVP ×4 (00:19→18:04)
[2019-12-23] MEDS: methylPREDNISolone SUCC 125 MG VIAL 60 MG IVP ×2 (00:19→09:07)
[2019-12-23] MEDS: Doxycycline Hyclate 100 MG CAP PO ×2 (03:28→15:55)
[2019-12-23 06:57] LABS: Abs Immature Grans 0.13 k/cumm (0.0-0.09); Absolute Basophil Count 0.01 k/cumm (0.0-0.2); Absolute Lymphocyte Count 1.24 k/cumm (1.2-3.4); Absolute Neutrophil Count 6.21 k/cumm (1.2-6.7); Basophils % 0.1; HCT 34.6 % (36.0-46.0); HGB 10.9 g/dL (12.0-15.5); Immature Grans % 1.6 %; Lymphocytes % 15.7; Mean Corp. HGB Concentration 31.5 g/dL (32.0-36.0); Mean Corpuscular Hemoglobin 28.3 pg (27.0-33.0); Mean Corpuscular Volume 89.9 fL (80-95); Mean Platelet Volume 10.3 fL (8.0-11.0); Monocytes % 3.8; Neutrophils % 78.8; Platelet Count 472 x1000/uL (130-400); RBC 3.85 m/cumm (4.00-5.20); RBC Distribution Width 14.1 % (11.7-14.6); White Blood Cell Count 7.88 k/cumm (4.4-10.8)
[2019-12-23 07:04] LABS: Anion Gap 5.5 mmol/L (3-11); BUN 17 mg/dL (7-18); CO2 30.5 mmol/L (21.0-32.0); CREATININE 0.74 mg/dL (0.55-1.02); Calcium 8.5 mg/dL (8.5-10.1); Chloride 102 mmol/L (98-107); Glucose 130 mg/dL (74-106); Magnesium 2.1 mg/dL (1.8-2.4); Potassium 4.1 mmol/L (3.5-5.1); Sodium 138 mmol/L (136-145)
[2019-12-23] MEDS: Enoxaparin 40 MG/0.4 ML SYR SC (09:06)
[2019-12-23] MEDS: Carbidopa 25/Levodopa 100 TAB PO ×3 (09:06→19:59)
[2019-12-23] MEDS: Baclofen 10 MG TAB 20 MG PO ×3 (09:06→19:59)
[2019-12-23] MEDS: FLUoxetine 20 MG CAP 80 MG PO (09:06)
[2019-12-23] MEDS: Multivitamin TAB 1 TAB PO (09:06)
[2019-12-23] MEDS: traMADol 50 MG TAB 100 MG PO ×3 (09:06→19:59)
[2019-12-23] MEDS: Gabapentin 800 MG TAB PO ×3 (09:06→19:59)
[2019-12-23] MEDS: guaiFENesin 600 MG TABCR PO ×2 (09:06→19:59)
--- NOTE | 2019-12-23 12:23 | PDOC.CMPRO ---
- If Service Date Differs Date of service: 12/23/19 Time of Service: 12:23 Care Management Progress Note S/O: No changes in the plan of care today, patient reviewed at interdisciplinary rounds Theodora remains inpatient and receiving IV abx. Length of treatment to be determined, CM to continue to assess for discharge needs including possibility of home oxygen at time of discharge. A: Theodora is a 54 year old female admitted to [facility] for CAP, Strep on 12/17/19. P: Anticipate Theodora will return home when medically cleared. She will transport home via private vehicle when ready. She will follow up with her PCP, as recommended. CM will continue to follow.
--- NOTE | 2019-12-23 15:15 | W.PM.PROGNOT ---
Date of Service Date of service: 12/23/19 Time of Service: 15:15 Assessment and Plan Assessment and plan (1) Pneumonia: Status: Acute Assessment and plan: Complicated by pulmonary abscess. Clinically much improved. Not requiring O2. CRP improving on Unasyn and doxycycline. Continue to trend. Does not require bronchoscopy, per [facility] pulmonology, but will need pulmonary follow up. Continue current abx through to [facility] with plans to change to augmentin on discharge. Check ambulatory pulse ox. Repeat CXR. Plan for discharge home tomorrow. Qualifiers: Pneumonia type: due to unspecified organism Laterality: right Lung location: lower lobe of lung Qualified Code(s): J18.9 - Pneumonia, unspecified organism (2) Lung abscess: Status: Acute Assessment and plan: As above (3) Strep throat: Status: Resolved Assessment and plan: Improving on above abx. Continue. (4) Otitis media: Status: Acute Assessment and plan: Still having some symptoms. Continue current abx. Qualifiers: Otitis media type: serous Chronicity: acute Laterality: bilateral Recurrence: non-recurrent Qualified Code(s): H65.03 - Acute serous otitis media, bilateral (5) Dystonia: Status: Chronic Assessment and plan: Continue muscule relaxants/neurontin. (6) Discharge planning issues: Status: Acute Assessment and plan: Full code Plan for discharge home tomorrow with a total course of oral abx to be 4-6 weeks. (7) DVT prophylaxis: Status: Acute Assessment and plan: Lovenox Subjective Subjective Interval history since last seen: Ms Ellis states she feels a lot better. She is off of O2, was able to walk to the shower and back without getting short of breath. Denies dizziness, chest pain, nausea, vomiting. Throat feels better. She thinks she will be ready to go home tomorrow. Exam Narrative Exam Narrative: General: Very pleasant middle-aged female, sitting up in a chair, A&OX3, looks much better than yesterday HEENT: EOMI, MMM Heart: RRR, mildly tachycardic, no m/r/g Lungs: CTAB Abdomen: soft, nontender, nondistended Extremities: no e/c/c BLE's Objective Objective Clinical Data: Abnormal lab results 12/23/19 12/23/19 Range/Units 06:33 06:33 RBC 3.85 L (4.00-5.20) m/cumm Hgb 10.9 L (12.0-15.5) g/dL Hct 34.6 L (36.0-46.0) % MCHC 31.5 L (32.0-36.0) g/dL Plt Count 472 H (130-400) x1000/uL Glucose 130 H (74-106) mg/dL Vital Signs Temperature 37.1 C 12/23/19 11:16 Temperature Source Tympanic 12/23/19 11:16 Pulse 85 12/23/19 11:16 Pulse Rhythm Regular 12/23/19 09:15 Respiratory Rate 22 12/23/19 13:43 Respiratory Effort Non-Labored 12/23/19 09:15 Respiratory Depth Normal 12/23/19 09:15 Respiratory Pattern Normal 12/23/19 09:15 Blood Pressure 124/74 12/23/19 11:16 Blood Pressure Position Sitting 12/17/19 10:43 Pulse Oximetry 94 L 12/23/19 14:50 Oxygen Delivery Method Room Air 12/23/19 14:50 Oxygen Flow Rate 0 12/23/19 14:50 Pain Level 6 12/23/19 13:25 Comment 12/21/19 23:36 Intake & Output 12/22/19 12/23/19 12/23/19 23:59 11:59 23:59 Intake Total 1290 / 1800 400 / 400 Output Total 500 / 500 Balance 1290 / 1800 -100 / -100 Intake: IV 200 / 410 200 / 200 Oral 1090 / 1390 200 / 200 Output: Urine 500 / 500 Other: Urine Color Yellow Urine Appearance Clear Urine Odor None Comment Pt reorts she voided into the toilet at ths time. Pt voiding in toilet indpendently Voiding Methods Toilet Laboratory Results WBC 7.88 k/cumm (4.4-10.8) D 12/23/19 06:33 RBC 3.85 m/cumm (4.00-5.20) L 12/23/19 06:33 Hgb 10.9 g/dL (12.0-15.5) L 12/23/19 06:33 Hct 34.6 % (36.0-46.0) L 12/23/19 06:33 MCV 89.9 fL (80-95) 12/23/19 06:33 MCH 28.3 pg (27.0-33.0) 12/23/19 06:33 MCHC 31.5 g/dL (32.0-36.0) L 12/23/19 06:33 RDW 14.1 % (11.7-14.6) 12/23/19 06:33 Plt Count 472 x1000/uL (130-400) H 12/23/19 06:33 MPV 10.3 fL (8.0-11.0) 12/23/19 06:33 Immature Gran % 1.6 % 12/23/19 06:33 Neutrophils % 78.8 12/23/19 06:33 Band Neutrophils % 0.0 % 12/19/19 06:38 Lymphocytes % 15.7 12/23/19 06:33 Atypical Lymphs % 2 12/22/19 07:00 Monocytes % 3.8 12/23/19 06:33 Eosinophils % 0.0 12/23/19 06:33 Basophils % 0.1 12/23/19 06:33 Metamyelocytes % 1.0 % 12/22/19 07:00 Myelocytes % 1.0 % 12/22/19 07:00 Absolute Neutrophils 6.21 k/cumm (1.2-6.7) 12/23/19 06:33 Absolute Lymphocytes 1.24 k/cumm (1.2-3.4) 12/23/19 06:33 Absolute Monocytes 0.30 k/cumm (0.11-0.7) 12/23/19 06:33 Absolute Eosinophils 0.00 k/cumm (0.0-0.7) 12/23/19 06:33 Absolute Basophils 0.01 k/cumm (0.0-0.2) 12/23/19 06:33 Differential Comment Manual differential 12/22/19 07:00 RBC Morphology Normal 12/22/19 07:00 Polychromasia Present 12/21/19 07:20 ESR 115 mm/hr (0-30) H 12/21/19 07:20 Sodium 138 mmol/L (136-145) 12/23/19 06:33 Potassium 4.1 mmol/L (3.5-5.1) 12/23/19 06:33 Chloride 102 mmol/L (98-107) 12/23/19 06:33 Carbon Dioxide 30.5 mmol/L (21.0-32.0) 12/23/19 06:33 Anion Gap 5.5 mmol/L (3-11) 12/23/19 06:33 BUN 17 mg/dL (7-18) 12/23/19 06:33 Creatinine 0.74 mg/dL (0.55-1.02) 12/23/19 06:33 Estimated GFR/1.73 m2 >= 60.00 (mL/min/1.73m2) 12/23/19 06:33 Glucose 130 mg/dL (74-106) H 12/23/19 06:33 Lactate 0.8 mmol/L (0.6-1.4) 12/19/19 06:38 Calcium 8.5 mg/dL (8.5-10.1) 12/23/19 06:33 Magnesium 2.1 mg/dL (1.8-2.4) 12/23/19 06:33 Total Bilirubin 0.7 mg/dL (0.2-1.0) 12/17/19 11:25 AST 14 U/L (15-37) L 12/17/19 11:25 ALT 21 U/L (14-59) 12/17/19 11:25 Alkaline Phosphatase 31 U/L (46-116) L 12/17/19 11:25 C-Reactive Protein 6.29 mg/dL (0.0-0.3) H 12/22/19 07:00 Total Protein 7.4 g/dL (6.4-8.2) 12/17/19 11:25 Albumin 2.6 g/dL (3.4-5.0) L 12/17/19 11:25
[2019-12-23] MEDS: predniSONE 20 MG TAB 60 MG PO (19:59)
[2019-12-23] MEDS: traZODone 50 MG TAB PO (22:07)
[2019-12-23] MEDS: QUEtiapine 100 MG TAB PO (22:07)
[2019-12-23] MEDS: QUEtiapine 300 MG TAB PO (22:07)
[2019-12-24] VITALS (13 sets, daily range): BP systolic 112–138; BP diastolic 71–84; PULSE 77–101; RESP 1–19; TEMP 36.7–37.1; O2SAT 88–95
[2019-12-24] MEDS: AMPICILLIN/SULBACTAM 3 GM in Normal Saline 100 ML IVPB ×3 (00:35→11:22)
[2019-12-24] MEDS: Normal Saline Flush 10 ML SYR IVP ×3 (00:35→11:22)
[2019-12-24] MEDS: Albuterol/Ipratropium 3 ML UPD VIAL UPD ×4 (00:36→17:40)
[2019-12-24] MEDS: traMADol 50 MG TAB 100 MG PO ×5 (00:53→21:59)
[2019-12-24] MEDS: Doxycycline Hyclate 100 MG CAP PO ×2 (04:16→15:43)
[2019-12-24 07:09] LABS: Abs Immature Grans 0.17 k/cumm (0.0-0.09); Absolute Basophil Count 0.01 k/cumm (0.0-0.2); Absolute Lymphocyte Count 1.34 k/cumm (1.2-3.4); Absolute Monocyte Count 0.37 k/cumm (0.11-0.7); Absolute Neutrophil Count 5.58 k/cumm (1.2-6.7); Basophils % 0.1; HCT 35.3 % (36.0-46.0); Immature Grans % 2.3 %; Lymphocytes % 17.9; Mean Corp. HGB Concentration 31.2 g/dL (32.0-36.0); Mean Corpuscular Hemoglobin 28.1 pg (27.0-33.0); Mean Corpuscular Volume 90.1 fL (80-95); Mean Platelet Volume 10.3 fL (8.0-11.0); Neutrophils % 74.7; Platelet Count 495 x1000/uL (130-400); RBC 3.92 m/cumm (4.00-5.20); RBC Distribution Width 13.9 % (11.7-14.6); White Blood Cell Count 7.47 k/cumm (4.4-10.8)
[2019-12-24 07:12] LABS: Anion Gap 7.3 mmol/L (3-11); BUN 16 mg/dL (7-18); CO2 29.7 mmol/L (21.0-32.0); CREATININE 0.77 mg/dL (0.55-1.02); Calcium 8.3 mg/dL (8.5-10.1); Chloride 102 mmol/L (98-107); Glucose 123 mg/dL (74-106); Magnesium 1.8 mg/dL (1.8-2.4); Potassium 3.8 mmol/L (3.5-5.1); Sodium 139 mmol/L (136-145)
--- NOTE | 2019-12-24 08:00 | DI.RAD_ITS ---
EXAM: XR PORTABLE CHEST AP CLINICAL HISTORY: follow up pneumonia TECHNIQUE: 2D digital imaging was performed. COMPARISON: XR CHEST 2V PA LATERAL from 12/20/2019 FINDINGS: MEDIASTINUM: Calcified lymph nodes seen in the mediastinum consistent with prior granulomatous diseas e. HEART: Normal. PULMONARY VASCULATURE: Normal. LUNGS: Interval decrease in the right perihilar infiltrate compared to 12/20/2019. The air-filled cav ity in the right perihilar region is still present. No new pulmonary infiltrates are present. PLEURAL SPACE: No pleural effusion or pneumothorax. BONE:Degenerative changes in the spine. OTHER FINDINGS:Nerve device is again seen overlying the left chest wall. There are surgical clips in the mediastinum. IMPRESSION: Marked improvement of the right perihilar infiltrate since 12/20/2019. Small residual infiltrate is s till present. DATA REPOSITORY: RADIATION DOSE DELIVERED:
[2019-12-24] MEDS: FLUoxetine 20 MG CAP 80 MG PO (08:33)
[2019-12-24] MEDS: Gabapentin 800 MG TAB PO ×3 (08:33→19:53)
[2019-12-24] MEDS: predniSONE 20 MG TAB 60 MG PO ×2 (08:34→19:53)
[2019-12-24] MEDS: Multivitamin TAB 1 TAB PO (08:34)
[2019-12-24] MEDS: guaiFENesin 600 MG TABCR PO ×2 (08:34→19:53)
[2019-12-24] MEDS: Carbidopa 25/Levodopa 100 TAB PO ×3 (08:34→19:53)
[2019-12-24] MEDS: Baclofen 10 MG TAB 20 MG PO ×3 (08:34→19:53)
[2019-12-24] MEDS: Enoxaparin 40 MG/0.4 ML SYR SC (08:34)
[2019-12-24] MEDS: Acetaminophen 325 MG TAB 650 MG PO (08:40)
[2019-12-24 09:07] LABS: Streptococcus Pneumoniae Ag, U Negative (Negative)
--- NOTE | 2019-12-24 11:12 | W.NUTRFU ---
Date of service: 12/24/19 Time of Service: 11:12 Nutritional Follow up NOTE: Theodora continues to follow regular meal plan with 75-100% meal completion. Weight has been stable. Not at nutritional risk. Time Spent in Nutritional Counseling and Treatment: 0 time spent face to face
--- NOTE | 2019-12-24 12:19 | PGE_ITS ---
Date of Service Date of service: 12/24/19 Time of Service: 12:20 Assessment and Plan Assessment and plan (1) Pneumonia: Start date: 12/24/19 Start time: 12:22 Status: Acute Assessment and plan: Complicated by pulmonary abscess. Clinically much improved. She is requiring oxygen with ambulation Transitioned to augmentin per [facility] will plan for a total 6 week course augmentin Does not require bronchoscopy, per [facility] pulmonology, but will need pulmonary follow up. Check ambulatory pulse ox. Repeat CXR. Plan for discharge home tomorrow. Qualifiers: Pneumonia type: due to unspecified organism Laterality: right Lung location: lower lobe of lung Qualified Code(s): J18.9 - Pneumonia, unspecified organism (2) Lung abscess: Start date: 12/24/19 Start time: 12:24 Status: Acute Assessment and plan: As above (3) Strep throat: Start date: 12/24/19 Start time: 12:24 Status: Resolved Assessment and plan: Improving on above abx. Continue. (4) Otitis media: Start date: 12/24/19 Start time: 12:24 Status: Acute Assessment and plan: Still having some symptoms. TM visible, top of membrane lama bottom pearly, with erythema around ear drum. Patient states f eeling better. Continue current abx. Qualifiers: Otitis media type: serous Chronicity: acute Laterality: bilateral Recurrence: non-recurrent Qualified Code(s): H65.03 - Acute serous otitis media, bilateral (5) Dystonia: Start date: 12/24/19 Start time: 12:25 Status: Chronic Assessment and plan: Continue muscule relaxants/neurontin. (6) Discharge planning issues: Start date: 12/24/19 Start time: 12:25 Status: Acute Assessment and plan: Full code Plan for discharge home tomorrow with a total course of oral abx to be 6 weeks. (7) DVT prophylaxis: Start date: 12/24/19 Start time: 12:26 Status: Acute Assessment and plan: Lovenox Above case discussed with Dr. Sweeney who is in agreement. Subjective Subjective Patient reports: no new complaints Interval history since last seen: Would like to go home however ambulatory oximetry 88% on RA. Discussed with patient staying until no longer requiring ox ygen. Encouraged ambulation, ICS. She is agreeable to plan. Possible discharge tomorrow. She will need 6 weeks augmentin and follow up with pulmonology. She denies CP, SOB, N/V/D. Exam Narrative Exam Narrative: General: Very pleasant middle-aged female, sitting up in a chair, A&OX3, looks well, nontoxic. HEENT: EOMI, MMM Heart: RRR, mildly tachycardic, no m/r/g Lungs: CTAB Abdomen: soft, nontender, nondistended Extremities: no e/c/c BLE's Objective Objective Clinical Data: Abnormal lab results 12/24/19 12/24/19 Range/Units 06:47 06:47 RBC 3.92 L (4.00-5.20) m/cumm Hgb 11.0 L (12.0-15.5) g/dL Hct 35.3 L (36.0-46.0) % MCHC 31.2 L (32.0-36.0) g/dL Plt Count 495 H (130-400) x1000/uL Glucose 123 H (74-106) mg/dL Calcium 8.3 L (8.5-10.1) mg/dL Vital Signs Temperature 36.7 C 12/24/19 07:46 Temperature Source Tympanic 12/24/19 07:46 Pulse 86 12/24/19 11:09 Pulse Rhythm Regular 12/24/19 09:24 Respiratory Rate 16 12/24/19 11:09 Respiratory Effort 12/24/19 09:24 Respiratory Depth Normal 12/24/19 09:24 Respiratory Pattern Normal 12/24/19 09:24 Blood Pressure 135/84 12/24/19 07:46 Blood Pressure Position Sitting 12/17/19 10:43 Pulse Oximetry 95 12/24/19 11:09 Oxygen Delivery Method Room Air 12/24/19 11:04 Oxygen Flow Rate 0 12/24/19 11:04 Pain Level 6 12/24/19 09:19 Comment 12/21/19 23:36 Intake & Output 12/23/19 12/24/19 12/24/19 23:59 11:59 23:59 Intake Total 440 / 840 985 / 985 Balance 440 / 340 985 / 985 Weight 71.8 kg Intake: IV 200 / 400 200 / 200 Oral 240 / 440 785 / 785 Other: Urine Color Yellow Urine Appearance Clear Comment VOIDED IN BR AND FLUSHED. Voiding Methods Toilet Laboratory Results WBC 7.47 k/cumm (4.4-10.8) 12/24/19 06:47 RBC 3.92 m/cumm (4.00-5.20) L 12/24/19 06:47 Hgb 11.0 g/dL (12.0-15.5) L 12/24/19 06:47 Hct 35.3 % (36.0-46.0) L 12/24/19 06:47 MCV 90.1 fL (80-95) 12/24/19 06:47 MCH 28.1 pg (27.0-33.0) 12/24/19 06:47 MCHC 31.2 g/dL (32.0-36.0) L 12/24/19 06:47 RDW 13.9 % (11.7-14.6) 12/24/19 06:47 Plt Count 495 x1000/uL (130-400) H 12/24/19 06:47 MPV 10.3 fL (8.0-11.0) 12/24/19 06:47 Immature Gran % 2.3 % 12/24/19 06:47 Neutrophils % 74.7 12/24/19 06:47 Band Neutrophils % 0.0 % 12/19/19 06:38 Lymphocytes % 17.9 12/24/19 06:47 Atypical Lymphs % 2 12/22/19 07:00 Monocytes % 5.0 12/24/19 06:47 Eosinophils % 0.0 12/24/19 06:47 Basophils % 0.1 12/24/19 06:47 Metamyelocytes % 1.0 % 12/22/19 07:00 Myelocytes % 1.0 % 12/22/19 07:00 Absolute Neutrophils 5.58 k/cumm (1.2-6.7) 12/24/19 06:47 Absolute Lymphocytes 1.34 k/cumm (1.2-3.4) 12/24/19 06:47 Absolute Monocytes 0.37 k/cumm (0.11-0.7) 12/24/19 06:47 Absolute Eosinophils 0.00 k/cumm (0.0-0.7) 12/24/19 06:47 Absolute Basophils 0.01 k/cumm (0.0-0.2) 12/24/19 06:47 Differential Comment Manual differential 12/22/19 07:00 RBC Morphology Normal 12/22/19 07:00 Polychromasia Present 12/21/19 07:20 ESR 115 mm/hr (0-30) H 12/21/19 07:20 Sodium 139 mmol/L (136-145) 12/24/19 06:47 Potassium 3.8 mmol/L (3.5-5.1) 12/24/19 06:47 Chloride 102 mmol/L (98-107) 12/24/19 06:47 Carbon Dioxide 29.7 mmol/L (21.0-32.0) 12/24/19 06:47 Anion Gap 7.3 mmol/L (3-11) 12/24/19 06:47 BUN 16 mg/dL (7-18) 12/24/19 06:47 Creatinine 0.77 mg/dL (0.55-1.02) 12/24/19 06:47 Estimated GFR/1.73 m2 >= 60.00 (mL/min/1.73m2) 12/24/19 06:47 Glucose 123 mg/dL (74-106) H 12/24/19 06:47 Lactate 0.8 mmol/L (0.6-1.4) 12/19/19 06:38 Calcium 8.3 mg/dL (8.5-10.1) L 12/24/19 06:47 Magnesium 1.8 mg/dL (1.8-2.4) 12/24/19 06:47 Total Bilirubin 0.7 mg/dL (0.2-1.0) 12/17/19 11:25 AST 14 U/L (15-37) L 12/17/19 11:25 ALT 21 U/L (14-59) 12/17/19 11:25 Alkaline Phosphatase 31 U/L (46-116) L 12/17/19 11:25 C-Reactive Protein 6.29 mg/dL (0.0-0.3) H 12/22/19 07:00 Total Protein 7.4 g/dL (6.4-8.2) 12/17/19 11:25 Albumin 2.6 g/dL (3.4-5.0) L 12/17/19 11:25 Urine Legionella Ag Cancelled 12/21/19 08:30 Ur Strep pneumoniae Ag Negative (Negative) 12/20/19 21:45
--- NOTE | 2019-12-24 15:33 | CMPROGNOTE_ITS ---
- If Service Date Differs Date of service: 12/24/19 Time of Service: 15:33 Care Management Progress Note S/O: Theodora stated that she was feeling much better today. CM attempted again to call Teo at the [place], at Theodora's request, with no success. Theodora reported that she is now only on O2 while ambulating, which is an improvement. CM will continue to follow. A: Theodora is a 54 year old female admitted to [facility] for CAP, Strep on 12/17/19. P: Anticipate Theodora will return home when medically cleared. She will transport home via private vehicle when ready. She will follow up with her PCP, as recommended. CM will continue to follow.
[2019-12-24] MEDS: Amoxicillin 875/Clav. 125 TAB PO (19:52)
[2019-12-24] MEDS: QUEtiapine 100 MG TAB PO (21:58)
[2019-12-24] MEDS: QUEtiapine 300 MG TAB PO (21:58)
[2019-12-24] MEDS: traZODone 50 MG TAB PO (21:58)
[2019-12-25] VITALS (10 sets, daily range): BP systolic 119–133; BP diastolic 77–81; PULSE 76–115; RESP 1–18; TEMP 36.6–37; O2SAT 91–98
[2019-12-25] MEDS: Albuterol/Ipratropium 3 ML UPD VIAL UPD ×3 (00:06→11:13)
[2019-12-25] MEDS: Enoxaparin 40 MG/0.4 ML SYR SC (08:10)
[2019-12-25] MEDS: Baclofen 10 MG TAB 20 MG PO (08:11)
[2019-12-25] MEDS: predniSONE 20 MG TAB 60 MG PO (08:11)
[2019-12-25] MEDS: Gabapentin 800 MG TAB PO (08:11)
[2019-12-25] MEDS: Multivitamin TAB 1 TAB PO (08:11)
[2019-12-25] MEDS: Carbidopa 25/Levodopa 100 TAB PO (08:11)
[2019-12-25] MEDS: Amoxicillin 875/Clav. 125 TAB PO (08:11)
[2019-12-25] MEDS: FLUoxetine 20 MG CAP 80 MG PO (08:11)
[2019-12-25] MEDS: guaiFENesin 600 MG TABCR PO (08:11)
[2019-12-25 08:13] LABS: Legionella Ag Detection Urine Negative (Negative)
[2019-12-25] MEDS: traMADol 50 MG TAB 100 MG PO ×2 (08:18→12:39)
--- NOTE | 2019-12-25 11:40 | W.PM.DS.N ---
Date of service: 12/25/19 Time of Service: 11:41 DS: Diagnosis Discharge Diagnosis (1) Pneumonia: Status: Acute (2) Lung abscess: Status: Acute (3) Strep throat: Status: Resolved (4) Otitis media: Status: Acute (5) Dystonia: Status: Chronic Discharge Plan Disposition Patient Disposition: HOME Condition: Fair Discharge Details Chief Complaint: RespSymp Clinical Impression: Sepsis, Pneumonia Reason For Visit: COMMUNITY-ACQUIRED PNEUMONIA, STREP PHARYNGITIS Admit Date/Time: 12/17/19 11:08 Admit Provider: Moshe Figueroa Attending Provider: Moshe Figueroa Primary Care Provider: Sheila Lara ED Provider: Ca Gonzalez Hospital Course Hospital Course: This is a 54-year-old female patient non-smoker who presented to the emergency department because of an inability to keep oral antibiotics that were prescribed the day before for a history of bilateral ear pain sore throat and cough. Her evaluation did show bilateral otitis media pharyngitis with a positive strep and a chest x-ray that showed a right upper lobe infiltrate. She was offered admission but declined and was discharged home on doxycycline and Augmentin and ofloxacin with an albuterol inhaler and Tessalon Perles. She was also having GI symptoms and was unable to keep her antibiotics down so return to the emergency department. She was admitted under hospitalist services and placed on ceftriaxone daily. Blood cultures remained negative. She did have oxygen requirements initially but has since been weaned to room air and is oxygenating 94 to 96% after a walk test. Her case was discussed with Dr. Catarino Cantor engineering technician parking from [facility] chest CT results were reviewed and it does appear that she has an abscess that crosses lobar fissure between lobes on the right side. Recommendations are for a 6-week course of Augmentin. She has been using nebulized DuoNeb and albuterol and will be discharged home on PRN nebulized albuterol. She will also continue a steroid taper. Outpatient recommendations include repeat x-ray in 2 weeks. She will also need outpatient referral to pulmonology and will also need PFTs when recovered. She is eating and drinking bowels and bladder are functioning hemodynamically stable and oxygenating in the mid to high 90s on room air. She will be discharged home with no services Home Meds and New Rx's Prescriptions: New albuterol sulfate 2.5 mg /3 mL (0.083 %) Solution For Nebulization 2.5 mg UPD Q2H PRN PRNQty: 30 RF: 0 prednisone 20 mg Tablet 60 mg PO BID Qty: 24 RF: 0 nystatin 100,000 unit/mL suspension 1 ml PO QID Qty: 200 RF: 0 Continued fluoxetine 40 MG capsule 80 mg PO QAM RF: 0 trazodone 50 MG tablet 50 mg PO HS RF: 0 baclofen 20 MG tablet 20 mg PO TID RF: 0 gabapentin 800 MG tablet 800 mg PO DIRECTED RF: 0 carbidopa-levodopa 1 EACH tablet,disintegrating 1 ea PO TID RF: 0 quetiapine 400 MG tablet extended release 24 hr 400 mg PO HS RF: 0 dronabinol [Marinol] 2.5 MG capsule 2.5 mg PO BID RF: 0 meclizine 25 mg tablet 25 mg PO BID PRN (Reason: dizziness) Qty: 10 RF: 0 amoxicillin-pot clavulanate [Augmentin] 875-125 mg tablet 1 tab PO BID Qty: 83 RF: 0 tizanidine 2 MG capsule 1 - 2 tab PO QID PRNRF: 0 Cannabidiol 20 - 40 mg PO QID PRN PRNRF: 0 multivitamin 1 EACH capsule 1 ea PO DAILY RF: 0 naproxen 500 mg Tablet 500 mg PO BID RF: 0 albuterol sulfate [Proventil HFA] 90 mcg/actuation HFA aerosol inhaler 2 puff IH Q6H PRN (Reason: shortness of breath or wheezing) Qty: 8.5 RF: 0 benzonatate [Tessalon Perles] 100 mg capsule 100 mg PO TID PRN (Reason: cough) Qty: 10 RF: 0 ofloxacin 0.3 % drops 10 drp OT DAILY 7 Days RF: 0 Discontinued doxycycline hyclate 100 mg capsule 100 mg PO BID Qty: 20 RF: 0 Discharge Instructions Instructions: Bacterial Pneumonia (DC) Additional Instructions: Continue antibiotics as prescribed for the next 6 weeks. Taper prednisone taking 60 mg daily for 3 days then 40 mg daily for 3 days then 20 mg daily for 3 days then stop. Use nebulizer as directed You will need an outpatient x-ray in 2 weeks. You will need outpatient engineering technician parking follow-up. You will need pulmonary function testing when you are symptoms have resolved Stand Alone Forms: Nursing Discharge Form Referrals: [place] [Other] (Please call [facility] Xray to make an appointment for 2 weeks. ) Sheila Lara [Primary Care Provider] - (Please Make Follow up appointment for 1 week.) Activity:: Activity as Tolerated Equipment/Supplies:: Nebulizer machine Diet:: As Tolerated Discharge Orders Discharge Orders: Discharge Order (Routine); Ordered 12/25/19 Ordered By: Jennifer Ramos Other Ambulatory Orders: Chest 2 Views PA,Lat (Routine) Timeframe: 2 Weeks Location: None Selected Ordered By: Jennifer Ramos DS: Summary Status at Discharge Functional status at discharge: independent ambulation Overall status at discharge: patient is progressing back to baseline Mental Status: mental status grossly normal Speech and Movement: speech and movement normal Mood: congruent mood Affect: normal affect Exam Const General: cooperative, healthy appearing, comfortable, no acute distress and well developed Nutritional Appearance: average body habitus Orientation: alert, awake and oriented x3 HENMT Head: normal to inspection, normocephalic and atraumatic Mouth: oral mucosae normal Resp Effort & Inspection: normal respiratory effort Auscultation: clear to auscultation bilaterally Cardio Rate: regular rate Rhythm: regular rhythm GI Inspection: normal to inspection Palpation: soft Auscultation: normal bowel sounds Skin General skin exam: no rashes or lesions noted Neuro General: patient alert, patient awake and patient oriented x3 Cranial Nerves: CN's II-XI intact bilaterally Extrem General: normal to inspection and full ROM Psych Mental Status: mental status grossly normal Speech and Movement: speech and movement normal Mood: congruent mood Affect: normal affect DS: Data Vitals/I&O Vitals and I&O: Vital Signs Temperature 37.0 C 12/25/19 07:21 Temperature Source Tympanic 12/25/19 07:21 Pulse 93 H 12/25/19 11:24 Pulse Rhythm Regular 12/25/19 08:15 Respiratory Rate 12 12/25/19 11:24 Respiratory Effort Non-Labored 12/25/19 08:15 Respiratory Depth Normal 12/25/19 08:15 Respiratory Pattern Normal 12/25/19 08:15 Blood Pressure 127/79 12/25/19 07:21 Blood Pressure Position Sitting 12/17/19 10:43 Pulse Oximetry 98 12/25/19 11:24 Oxygen Delivery Method Room Air 12/25/19 11:13 Oxygen Flow Rate 0 12/25/19 11:13 Pain Level 6 12/25/19 08:18 Comment 12/21/19 23:36 Intake & Output 12/24/19 12/24/19 12/25/19 11:59 23:59 11:59 Intake Total 985 / 1325 340 / 1325 Balance 985 / 1325 340 / 1325 Weight 71.8 kg Intake: IV 200 / 300 100 / 300 Oral 785 / 1025 240 / 1025 Other: Urine Color Yellow Comment VOIDED IN BR AND FLUSHED. per patient pt voiding independently. Stool Size Moderate Stool Characteristics Formed Voiding Methods Toilet Toilet Toilet Data Completed and Pending Labs on day of discharge: Labs from last 24 hours 12/23/19 12/20/19 15:27 18:20 Urine Legionella Ag Negative M. pneumoniae Source Cancelled M. pneumoniae (PCR) Cancelled [facility] Medical History Anemia Chronic pain Depression Dystonia (Chronic) Fatigue Incontinence Insomnia Light-headedness (Chronic) Low back pain Lymphadenopathy (Chronic) Pain in left knee Raynauds syndrome Sarcoidosis TMJ (temporomandibular joint disorder) Vitamin D deficiency Surgical History (Updated 12/17/19 @ 12:25 by Moshe Figueroa MD) Colonoscopy - MAC (08/29/17) 08/29/17 Dr Bonner - incomplete prep, rec'd repeat with 2 day prep. mg S/P deep brain stimulator placement (Acute) Social History Smoking/Tobacco Use Status: Never Alcohol Intake: never Drug use: Never Substance use type: does not use Do you feel safe at home: Yes Do you feel safe in your relationship?: Yes Female Reproductive History Menstrual Menopause type: natural
--- NOTE | 2019-12-25 15:57 | PDOC.CMDIS ---
- If Service Date Differs Date of service: 12/25/19 Time of Service: 15:57 LACE Index Scoring Tool - Questions: Length of Stay (in days): 7 - 13 Acuity (Admit via E.D.?): Yes E.D. Visits: 3 - Answers: Total Score: 11 Risk of Readmission: High Risk Care Management Discharge Reason for Hospitalization: CAP, Strep Discharge Plan: Theodora will return home with no additional services at this time. She will follow up with her PCP, as recommended. Her son will drive her home when ready. Theodora is agreeable to the plan. Patient/Family Education Needs: Review discharge instructions regarding activity levels and medications, discussion of self care needs including ask me three.
== END 2019-12-25 12:54 | disposition home or self-care (01) | DRG 177 ==
LOC: ER 12:36 → MS 12:45
PROVIDERS: Internal Medicine; Admitting Provider Internal Medicine; Emergency Provider Physician Assistant; PCP Physician Assistant Medical; Visit Provider Internal Medicine
DX: J85.1 Abscess of lung with pneumonia (principal); A41.9 Sepsis, unspecified organism; B95.0 Streptococcus, group A, as the cause of diseases classified elsewhere; J02.0 Streptococcal pharyngitis; H66.93 Otitis media, unspecified, bilateral; G24.9 Dystonia, unspecified; F32.9 Major depressive disorder, single episode, unspecified; R11.10 Vomiting, unspecified; R19.7 Diarrhea, unspecified; G89.29 Other chronic pain; D86.0 Sarcoidosis of lung
CPT/HCPCS: 36415; 71250; 80048; 80053; 85027; 85652; 86713; 87040; 87077; 87449; 94618; 94640; 96361; 96365; 96366; 99222; 99232; 99233; 99239; 99285; J1650; 71045; 71046; 83605; 83735; 85025; 86140; 87070; 87205; 87450; 87581; 94667; J0295; J0696; J2930; J7512; J7613; J7620

== ENCOUNTER 2020-01-09 08:17 | Outpatient (CLI) | payer MEDICARE, SELFPAY ==
--- NOTE | 2020-01-09 | DI.RAD_ITS ---
EXAM: XR CHEST 2V PA LATERAL CLINICAL HISTORY: F/U PNEUMONIA, J18.9 TECHNIQUE: 2D digital imaging was performed. COMPARISON: CT CHEST HIGH RESOLUTION from 12/21/2019 XR PORTABLE CHEST AP from 12/24/2019 FINDINGS: An electronic device is again noted positioned over the left chest wall. Heart size is normal. Edward gical clips are seen in the lower chest, adjacent to the spine. There are minimal residual right upp er lobe densities. Calcified hilar lymph nodes are again noted. No new abnormalities are seen. IMPRESSION: Minimal residual right upper lobe densities present scarring. No new abnormalities are seen.
== END 2020-01-09 08:37 ==
PROVIDERS: PCP Physician Assistant Medical; Visit Provider Physician Assistant Medical
DX: J18.9 Pneumonia, unspecified organism (principal); J98.4 Other disorders of lung
CPT/HCPCS: 71046

== ENCOUNTER 2021-10-10 16:44 | Emergency (ER) | payer MEDICARE, SELFPAY ==
--- NOTE | 2021-10-10 16:45 | DI.RAD_ITS ---
Exam(s) XR WRIST LT COMPLETE EXAM: XR WRIST LT COMPLETE CLINICAL HISTORY: fall injury TECHNIQUE: COMPARISON: No exams were available for comparison FINDINGS: Three views were obtained. There is a fracture of the distal radius with moderate displacement. The fracture fragments appear mildly impacted and mildly comminuted. No additional fracture seen. Ther e are degenerative changes most marked at the greater multangular 1st metacarpal joint. IMPRESSION: RADIATION DOSE DELIVERED: Total DLP
[2021-10-10 16:49] VITALS: BP 116/61; PULSE 76; RESP 18; TEMP 36.6; O2SAT 98
--- NOTE | 2021-10-10 17:02 | W.ED.GENAD ---
Discharge Plan Disposition Patient Disposition: HOME Condition: Stable Discharge Details Clinical Impression: Distal radius fracture, left Primary Care Provider: Unknown,Unknown ED Provider: Cesar Enrique Home Meds and New Rx's Prescriptions: New oxycodone-acetaminophen [Percocet] 5-325 mg tablet 1 tab PO Q8H PRNQty: 8 RF: 0 Continued fluoxetine 40 MG capsule 80 mg PO QAM RF: 0 trazodone 50 MG tablet 50 mg PO HS RF: 0 baclofen 20 MG tablet 20 mg PO TID RF: 0 gabapentin 800 MG tablet 800 mg PO DIRECTED RF: 0 carbidopa-levodopa 1 EACH tablet,disintegrating 1 ea PO TID RF: 0 quetiapine 400 MG tablet extended release 24 hr 400 mg PO HS RF: 0 dronabinol [Marinol] 2.5 MG capsule 2.5 mg PO BID RF: 0 meclizine 25 mg tablet 25 mg PO BID PRN (Reason: dizziness) Qty: 10 RF: 0 albuterol sulfate 2.5 mg /3 mL (0.083 %) Solution For Nebulization 2.5 mg UPD Q2H PRN PRNQty: 30 RF: 0 prednisone 20 mg Tablet 60 mg PO BID Qty: 24 RF: 0 amoxicillin-pot clavulanate [Augmentin] 875-125 mg tablet 1 tab PO BID Qty: 83 RF: 0 nystatin 100,000 unit/mL suspension 1 ml PO QID Qty: 200 RF: 0 tizanidine 2 MG capsule 1 - 2 tab PO QID PRNRF: 0 Cannabidiol 20 - 40 mg PO QID PRN PRNRF: 0 multivitamin 1 EACH capsule 1 ea PO DAILY RF: 0 naproxen 500 mg Tablet 500 mg PO BID RF: 0 albuterol sulfate [Proventil HFA] 90 mcg/actuation HFA aerosol inhaler 2 puff IH Q6H PRN (Reason: shortness of breath or wheezing) Qty: 8.5 RF: 0 benzonatate [Tessalon Perles] 100 mg capsule 100 mg PO TID PRN (Reason: cough) Qty: 10 RF: 0 Discharge Instructions Instructions: Wrist Fracture in Adults (ED) Additional Instructions: X-ray reveals a wrist fracture. Wear splint until reevaluation with orthopedics, please contact their office first thing Tuesday morning, I have placed you on the orthopedic list. Wear splint until reevaluation. Rest, elevate, cool compresses every 2 hours for 20 minutes. [id number] Tylenol and/or Motrin as directed for discomfort. Percocet as directed, number this medication may cause drowsiness and/or constipation. You may want to take an fkxi-rih-[id number] stool softener. Remember that Percocet has a component of Tylenol in it if you take additional Tylenol did not exceed 4 g daily. Please watch for new or worsening symptoms and return to the ER for any concerns. Referrals: Darnell Cristina MD [ [facility] STAFF PHYSICIAN] - Discharge Data Discharge Date/Time-TO BE ENTERED AT DEPARTURE: 10/10/21 18:09 Medical Decision Making 56-year-old female, [id number], presents for left wrist injury she sustained roughly 1 hour ago after having mechanical slip and fall, subsequent box landing on her wrist. Neuro, vascular, tendon intact. Diffuse left wrist swelling. Patient did drive herself. Plan is to obtain x-ray. X-ray reveals fracture. She remains neuro, vascular, tendon intact. Plan is to splint appropriately, placed on the orthopedic list and I will provide her with a prescription for Percocet as well a take-home pack, she will also use itih-gck-bbngois anti-inflammatory medication. Patient has no additional questions or concerns and is comfortable discharge at this time. Standard discharge and return precautions provided This documentation was generated using [employer] dictation system, please disregard any oddities of phrase or misspellings. Medical Records Medical records reviewed: Yes I reviewed the patient's medical records. Imaging Data Radiologic Study: Attestation: I personally reviewed and interpreted this imaging study as follows: Imaging: X-Ray Radiologist's impression: PROCEDURE INFORMATION: Exam: XR Left Wrist Exam date and time: 10/10/2021 5:00 PM Age: 56 years old Clinical indication: Other: Fall injury; Patient HX: Left wrist pain after fall TECHNIQUE: Imaging protocol: XR Left wrist. Views: 3 or more views. COMPARISON: No relevant prior studies available. FINDINGS: Bones/joints: There is a comminuted slightly impacted distal radial shaft fracture at the metadiaphyseal level. There is moderate degenerative change in the 1st CMC articulation. Soft tissues: Normal. IMPRESSION: Impacted, comminuted distal radial fracture. HPI General Mode of arrival: ambulatory. Date/Time Provider Initiated Documentation: 10/10/21 16:55. Limitations to Documentation: no limitations. Information obtained by: patient. HPI Narrative: This is a 56-year-old female, [id number], not anticoagulated, presenting to the ER for left wrist pain. Patient states that she had a mechanical slip and fall while moving a box weighed approximately 65 pounds. She states that she fell backwards onto the ground and the box then subsequently hit her arm. She denies any other injury, head injury, neck pain, numbness, tingling, weakness, any symptoms prior to the injury. Reports the pain is moderate at rest worse with movement. Has not taken any yyiv-pre-zpdpeuy medications for her symptoms. Related Data Home Medications Medication Instructions Recorded Confirmed baclofen 20 mg PO TID 06/09/17 10/10/21 carbidopa-levodopa 1 ea PO TID 06/09/17 10/10/21 fluoxetine 80 mg PO QAM 06/09/17 10/10/21 gabapentin 800 mg PO DIRECTED 06/09/17 10/10/21 quetiapine 400 mg PO HS 06/09/17 10/10/21 trazodone 50 mg PO HS 06/09/17 10/10/21 Cannabidiol 20 - 40 mg PO QID PRN PRN 07/29/17 10/10/21 multivitamin 1 ea PO DAILY 07/29/17 10/10/21 tizanidine 1 - 2 tab PO QID PRN 07/29/17 10/10/21 dronabinol [Marinol] 2.5 mg PO BID 08/29/17 10/10/21 meclizine 25 mg PO BID PRN #10 tab 06/01/19 10/10/21 albuterol sulfate [Proventil HFA] 2 puff IH Q6H PRN #8.5 gm 12/16/19 10/10/21 benzonatate [Tessalon Perles] 100 mg PO TID PRN #10 cap 12/16/19 10/10/21 naproxen 500 mg PO BID 12/16/19 10/10/21 albuterol sulfate 2.5 mg UPD Q2H PRN PRN #30 amp 12/25/19 10/10/21 amoxicillin-pot clavulanate 1 tab PO BID #83 tab 12/25/19 10/10/21 [Augmentin] nystatin 1 ml PO QID #200 ml 12/25/19 10/10/21 prednisone 60 mg PO BID #24 tab 12/25/19 10/10/21 oxycodone-acetaminophen [Percocet] 1 tab PO Q8H PRN #8 tab 10/10/21 Previous Rx's Medication Instructions Recorded meclizine 25 mg PO BID PRN #10 tab 06/01/19 albuterol sulfate [Proventil HFA] 2 puff IH Q6H PRN #8.5 gm 12/16/19 benzonatate [Tessalon Perles] 100 mg PO TID PRN #10 cap 12/16/19 albuterol sulfate 2.5 mg UPD Q2H PRN PRN #30 amp 12/25/19 amoxicillin-pot clavulanate 1 tab PO BID #83 tab 12/25/19 [Augmentin] nystatin 1 ml PO QID #200 ml 12/25/19 prednisone 60 mg PO BID #24 tab 12/25/19 oxycodone-acetaminophen [Percocet] 1 tab PO Q8H PRN #8 tab 10/10/21 Allergies Allergy/AdvReac Type Severity Reaction Status Date / Time morphine AdvReac very Unverified 10/10/21 16:52 loopy General Stated Complaint: Orthopedic JOEY: 3 Review of Systems Constitutional Constitutional: Denies headache(s) and Denies weakness ENT Ears, Nose, Mouth, and Throat: Denies headache(s) Musculoskeletal Musculoskeletal: Reports arthralgias, Denies numbness, Reports stiffness and Denies tingling Integumentary/Breasts Skin/Breast: Denies erythema Neurologic Neurologic: Denies headache(s), Denies numbness, Denies tingling and Denies weakness PFSH All Active Problems (Updated 10/10/21 @ 18:01 by REYNA Montemayor) Distal radius fracture, left (Acute) DVT prophylaxis (Acute) Discharge planning issues (Acute) Lung abscess (Acute) Vomiting and diarrhea (Acute) Dystonia (Chronic) Sepsis (Acute) Pneumonia (Acute) Medical History (Updated 10/10/21 @ 18:01 by REYNA Montemayor) Anemia Chronic pain Fatigue Incontinence Insomnia Light-headedness Low back pain Lymphadenopathy Pain in left knee Raynauds syndrome Sarcoidosis TMJ (temporomandibular joint disorder) Vitamin D deficiency Surgical History Colonoscopy - MAC (08/29/17) 08/29/17 Dr Bonner - incomplete prep, rec'd repeat with 2 day prep. mg S/P deep brain stimulator placement Social History Smoking/Tobacco Use Status: Never Smoking risk assessment performed?: Yes Alcohol Intake: never Drug use: Never Substance use type: does not use Do you feel safe at home: Yes Do you feel safe in your relationship?: Yes Female Reproductive History Menstrual Menopause type: natural Exam Const General: cooperative, healthy appearing, comfortable and no acute distress Orientation: alert and awake HENMT Head: normal to inspection, normocephalic and atraumatic Eyes General: appearance normal, both eyes and all related structures Conjunctivae: conjunctivae normal Neck Neck: normal visual inspection, trachea midline and supple Resp Effort & Inspection: normal respiratory effort and able to speak in complete sentences Cardio Rate: regular rate Rhythm: regular rhythm Skin General skin exam: no rashes or lesions noted Neuro General: patient alert, patient awake, moves all extremities and no focal motor deficits Cognition: normal cognition Speech: speech normal Gait: normal gait Sensory Exam: no sensory deficits noted Extrem General: capillary refill normal Other: Left wrist with diffuse discomfort, mild swelling worse over the radial aspect. There is no obvious deformity. Skin is intact. Normal radial pulse and capillary refill. Neuro, vascular, tendon intact. Slight decrease range of motion secondary to discomfort. Psych Appearance: grossly normal Mental Status: mental status grossly normal Course Vital Signs Vital signs: Vital Signs Temperature 36.6 C 10/10/21 16:49 Pulse 76 10/10/21 16:49 Respiratory Rate 18 10/10/21 16:49 Blood Pressure 116/61 10/10/21 16:49 Pulse Oximetry 98 10/10/21 16:49 Temperature 36.6 C 10/10/21 16:49 Pulse 76 10/10/21 16:49 Respiratory Rate 18 10/10/21 16:49 Respiratory Effort Non-Labored 10/10/21 16:52 Blood Pressure 116/61 10/10/21 16:49 Pulse Oximetry 98 10/10/21 16:49 Oxygen Delivery Method Room Air 10/10/21 16:49 Oxygen Flow Rate 0 10/10/21 16:49 Pain Level 8 10/10/21 16:52 Procedures Orthopedic Splinting/Casting Injury #1: Side: left Upper Extremity Injury Location: wrist Upper Extremity Immobilizer: wrist splint (Ortho-Glass) Additional Comments: Neuro, vascular, tendon intact status post splint application as evaluated by me
--- NOTE | 2021-10-10 17:16 | DI.VRAD_ITS ---
PROCEDURE INFORMATION: Exam: XR Left Wrist Exam date and time: 10/10/2021 5:00 PM Age: 56 years old Clinical indication: Other: Fall injury; Patient HX: Left wrist pain after fall TECHNIQUE: Imaging protocol: XR Left wrist. Views: 3 or more views. COMPARISON: No relevant prior studies available. FINDINGS: Bones/joints: There is a comminuted slightly impacted distal radial shaft fracture at the metadiaphyseal level. There is moderate degenerative change in the 1st CMC articulation. Soft tissues: Normal. IMPRESSION: Impacted, comminuted distal radial fracture. Dictated and Authenticated by: Madina Lopez MD. Ordering:SOFÍA Guerrero MD
== END 2021-10-10 18:09 | disposition home or self-care (01) ==
PROVIDERS: Emergency Provider Physician Assistant
DX: S52.592A Other fractures of lower end of left radius, initial encounter for closed fracture (principal); W20.8XXA Other cause of strike by thrown, projected or falling object, initial encounter
CPT/HCPCS: 29125; 99283; 73110